=== PATIENT | male | born 1955 | race Caucasian/White ===

== ENCOUNTER 2024-07-03 15:24 | Emergency (ER) | payer MEDICARE, MEDICAID, SELFPAY ==
--- NOTE | 2024-07-03 | ECG_ITS ---
Test Reason : SOB Blood Pressure : */* mmHG Vent. Rate : 82 BPM Atrial Rate : 82 BPM P-R Int : 154 ms QRS Dur : 124 ms QT Int : 392 ms P-R-T Axes : 42 55 39 degrees QTcB Int : 457 ms Poor data quality Normal sinus rhythm Right bundle branch block Abnormal ECG No previous ECGs available Referred By: Generic ED Physician Electronically Signed By: MIRANDA ADKINS MD
--- NOTE | ~2024-07-03 | XR_ITS ---
CLINICAL HISTORY: great toe wound, erythema 3 view right 1st toe Comparison: None Findings: No acute fracture. No bony destruction or periostitis. Osteopenia is present. No significant loss of joint space or osteophytes. No erosions. No radiopaque foreign body. Severe edema of the soft tissues. No soft tissue gas collection. IMPRESSION: No evidence of osteomyelitis. This document has been electronically signed by: Padmini Davison MD on 07/03/2024 18:01:05
--- NOTE | ~2024-07-03 | XR_ITS ---
CLINICAL HISTORY: SOB 2 view chest x-ray Comparison: None Findings: Pulmonary hypoinflation. Mild airspace opacity within the left lower lung. No pleural effusion. Normal size heart. No acute fracture. IMPRESSION: Pulmonary hypoinflation with mild left basilar atelectasis or infiltrate. This document has been electronically signed by: Padmini Davison MD on 07/03/2024 17:59:18
--- NOTE | ~2024-07-03 | CT_ITS ---
CLINICAL HISTORY: SOB, hypoxemia CT chest without contrast Comparison: None Findings: The heart is normal size. The visualized thyroid and mediastinum are unremarkable. There is complete consolidation of the right middle and lower lobes with significant associated volume loss. Trace left pleural effusion. Moderate pulmonary emphysema, predominantly paraseptal. Multiple small gallstones within the gallbladder. The bones are intact. IMPRESSION: 1. Extensive atelectasis and/or infiltrates within the right middle and right lower lobes. 2. Trace left pleural effusion. 3. Cholelithiasis. This document has been electronically signed by: Padmini Davison MD on 07/03/2024 20:15:11
[2024-07-03 15:36] VITALS: BP 117/80; BP 119/53; PULSE 81; PULSE 83; RESP 14; O2SAT 92; O2SAT 93; BMI 30.8
--- NOTE | 2024-07-03 15:40 | PC.NURSE ---
pt biba from [facility] d/t increased sob x this morning. hx CHF/COPD. pt found to be at 83% on 3L via NC (baseline). pt received breathing tx x 2, 125mg of solumedrol w/ good effect. denies chest pain/fever/chills. upon ED arrival - a&ox4. vss and up to date. nsr on the conveyor monitor. pt reports sx improved s/p interventions provided by EMS. 20gIV in the left AC via EMS. labs obtained/sent to lab. ekg performed. pt currently displays in no respiratory distress. on 3L via NC w/o difficulty. no sob/wob noted. respirations even/unlabored. plan of care ongoing. call cortez placed within reach.
[2024-07-03 15:57] LABS: MANUAL DIFF FLAG NO
[2024-07-03 15:58] LABS: Basophils Percent Auto 0.3 % (0-2); Eosinophils Absolute Auto 0.1 X10*3/uL (0.0-0.4); Eosinophils Percent Auto 0.6 % (0-4); Hematocrit 34.4 % (42.0-52.0); Hemoglobin 10.4 g/dl (14.0-18.0); Imm Gran Abs Auto 0.07 X10*3/uL (0.00-0.03); Imm Gran Pct Auto 0.6 % (0.0-0.4); Lymphocytes Absolute Auto 2.1 X10*3/uL (1.2-4.9); Lymphocytes Percent Auto 19.5 % (20-40); Mean Corpuscular HGB Conc 30.2 g/dl (31.0-36.0); Mean Corpuscular Volume 99.1 fL (80.0-98.0); Mean Platelet Volume 9.9 fL (9.4-12.4); Monocytes Absolute Auto 1.3 X10*3/uL (0.1-1.2); Monocytes Percent Auto 12.3 % (2-11); Neutrophils Absolute Auto 7.2 x10*3/uL (2.0-8.3); Neutrophils Percent Auto 66.7 % (45-73); Platelet Count 236 X10*3/uL (160-400); Red Blood Count 3.47 X10*6/uL (4.60-5.80); Red Cell Distribution Width 15.1 % (11.0-16.0); White Blood Count 10.8 X10*3/uL (4.8-10.8)
[2024-07-03 16:00] VITALS: BP 116/62; PULSE 85; RESP 18; TEMP 36.9; O2SAT 93
--- NOTE | 2024-07-03 16:02 | ED.SOB ---
HPI - SOB/Dyspnea General Chief Complaint: Dyspnea Stated Complaint: SOB FROM SNF Time Seen by Provider: 07/03/24 15:56 Related Data Allergies Allergy/AdvReac Type Severity Reaction Status Date / Time cephalexin [From Keflex] Allergy Unknown Verified 07/03/24 15:43 [facility] Social History Social History Do you have a plan to hurt others: No Plan Physical Exam Vital Signs: Vital Signs: Last Vital Signs Temp 98.5 F 07/03/24 16:00 Pulse 85 07/03/24 16:00 Resp 18 07/03/24 16:00 BP 116/62 07/03/24 16:00 Pulse Ox 93 07/03/24 16:00 O2 Del Method Nasal Cannula 07/03/24 16:00 Oxygen Flow Rate 2 07/03/24 15:36 BMI result Body Mass Index 30.8 Medical Decision Making Medical Decision Making [facility] Narrative: CKD, diabetes mellitus, COPD, chronic hypoxic respiratory failure on supplemental O2 at baseline, PVD s/p left foot 2nd toe amputation, CHF, paroxysmal atrial fibrillation, history of pulmonary embolism anticoagulated on apixaban, hypertension, hyperlipidemia, depression, anxiety, dementia Lab Data 07/03/24 15:52 07/03/24 15:52 Labs: Lab Results 07/03/24 Range/Units 15:52 WBC 10.8 (4.8-10.8) X10*3/uL RBC 3.47 L (4.60-5.80) X10*6/uL Hgb 10.4 L (14.0-18.0) g/dl Hct 34.4 L (42.0-52.0) % MCV 99.1 H (80.0-98.0) fL MCH 30.0 (27.0-33.0) pg MCHC 30.2 L (31.0-36.0) g/dl RDW 15.1 (11.0-16.0) % Plt Count 236 (160-400) X10*3/uL MPV 9.9 (9.4-12.4) fL Immature Gran % (Auto) 0.6 H (0.0-0.4) % Neut % (Auto) 66.7 (45-73) % Lymph % (Auto) 19.5 L (20-40) % [place] % (Auto) 12.3 H (2-11) % Eos % (Auto) 0.6 (0-4) % Baso % (Auto) 0.3 (0-2) % Lymph # (Auto) 2.1 (1.2-4.9) X10*3/uL [place] # (Auto) 1.3 H (0.1-1.2) X10*3/uL Eos # (Auto) 0.1 (0.0-0.4) X10*3/uL Baso # (Auto) 0.0 (0.0-0.2) X10*3/uL Abs Immat Gran (auto) 0.07 H (0.00-0.03) X10*3/uL Absolute Neuts (auto) 7.2 (2.0-8.3) x10*3/uL Absolute Nucleated RBC 0.000 (0.0-0.012) X10*3/uL Nucleated RBC % (auto) 0.0 (0.0-0.2) /100WBC External Record Review External record reviewed: Inpatient record and Outpatient record Recent admission to [facility] 06/17/2024-06/20/2024 for acute on chronic hypoxic respiratory failure, COVID-19, COPD exacerbation given 10 day course of dexamethasone, possible superimposed pneumonia work ruled out with negative procalcitonin, mild JESSIKA on CKD (baseline creatinine 1.2-1.7). I do not see record of documented tension pneumothorax from [facility] medical record [facility] at least in the past few months Discharge Plan Discharge Print Language: Khmer
[2024-07-03 16:10] LABS: INTERNATIONAL NORM RATIO 1.6 (0.9-1.1); Prothrombin Time 18.3 SEC (10.9-12.4)
[2024-07-03 16:13] LABS: Partial Thromboplastin Time 28.4 SEC (26.0-36.8)
[2024-07-03 16:20] LABS: B Type Natriuretic Peptide 22 pg/mL (<100)
[2024-07-03 16:23] LABS: Troponin-I High Sensitivity 11.2 ng/L (<3.5-35.0)
[2024-07-03 16:27] VITALS: O2SAT 94
--- NOTE | 2024-07-03 16:28 | ED.GENADULT ---
HPI - General Adult General Chief complaint: Dyspnea Stated complaint: SOB FROM SNF Time Seen by Provider: 07/03/24 15:56 Source: patient and EMS Mode of arrival: EMS Limitations: no limitations History of Present Illness ED Provider: wisam jones NP HPI narrative: Patient is a 69-year-old male who presents emergency department via EMS coming from [facility]. Reports that he was recently discharged from [facility] couple of weeks ago, states he has been feeling not quite at baseline but better than when he presented to the hospital. However, he states today he was feeling worse with increased shortness of breath and work of breathing. He reports at baseline he wears 3 L via nasal cannula of supplemental oxygen. He denies any known fevers. Denies any known illnesses passing through the detention facility. No associated fall. He denies cough, sore throat, neck pain, chest pain, palpitations, nausea, vomiting, abdominal pain, numbness or tingling of the extremities, recent lower extremity pain or swelling. He does admit to having an ongoing wound to the right great toe states it has been there for about 1 month. He has bilateral lower extremity edema which she has feels is at baseline for him may be slightly worse Related Data Previous Rx's ?Medication ?Instructions ?Recorded amoxicillin 875 mg-potassium 1 tab PO BID 7 days #14 tabs 07/03/24 clavulanate 125 mg tablet doxycycline hyclate 100 mg capsule 100 mg PO BID 5 days #10 caps 07/03/24 Allergies Allergy/AdvReac Type Severity Reaction Status Date / Time cephalexin [From Keflex] Allergy Unknown Verified 07/03/24 15:43 Review of Systems Review of Systems: Yes all other systems are reviewed and are negative [facility] Past Medical History Attestation statement: The following information was validated with the patient. Source: old records reviewed Social History Social History Smoked in Last 30 Days: No Use of substances other than those prescribed or required for medical reasons: No Advance Directives: No Advance Directives Information Provided: No Do you have a plan to hurt others: No Plan Physical Exam ED Vital Signs: Vital Signs - 24 hr 07/03/24 15:36 07/03/24 16:00 07/03/24 16:27 Temperature 98.5 F Pulse Rate 83 85 Respiratory Rate 14 18 Blood Pressure 119/53 L 116/62 Pulse Oximetry 93 93 94 Oxygen Delivery Method Nasal Cannula Nasal Cannula Nasal Cannula Oxygen Flow Rate 2 3 07/03/24 18:04 07/03/24 18:07 07/03/24 18:42 Temperature 98.1 F Pulse Rate 83 85 84 Respiratory Rate Blood Pressure 113/65 123/68 Pulse Oximetry 93 90 L Oxygen Delivery Method Nasal Cannula Nasal Cannula Oxygen Flow Rate 3 3.5 BMI result Body Mass Index 30.8 Appearance: Alert.?Oriented to person, place and time. No acute distress.?Normal affect. Eyes: Pupils equal, round and reactive to light.? ENT: Pharynx normal.?? Neck: Normal inspection.? Neck supple.?? CVS: Heart sounds normal. Normal heart rate and rhythm.? Pulses normal.?? Respiratory: No respiratory distress.? Lung sounds with rales to the right lower lobe Abdomen: Soft and non-tender. Normoactive bowel sounds. Skin: Skin warm and dry.? Normal skin color.? Extremities: 3+ pitting bilateral lower extremity edema. Right great toe erythematous with a wound to the plantar distal aspect of the toe, wound bed pink with granulation tissue. The entirety of the great toe is erythematous and warmth with mild erythema and warmth over the dorsum of the foot.? No calf ttp? Neuro: Moves all extremities spontaneously. Sensation intact bilaterally. No focal neuro deficits. Medications Administered Discontinued Medications Generic Name Dose Route Start Last Admin Trade Name Freq PRN Reason Stop Dose Admin Albuterol Sulfate 2.5 mg/ 0 mg 07/03/24 18:40 07/03/24 18:42 Albuterol/Ipratropium 3 ml INHALE 07/03/24 18:41 1 dose ONCE ONE Administration Medical Decision Making Medical Decision Making [facility] Narrative: Patient is a 69-year-old male with past medical history of type 2 diabetes, hypertension, hyperlipidemia, CKD stage 3, paroxysmal atrial fibrillation history of pulmonary embolism anticoagulated on apixaban, COPD with chronic hypoxic respiratory failure 3-4 L at baseline, PVD s/p left foot 2nd toe amputation, depression, anxiety, mild dementia who presents emergency department for evaluation of shortness of breath as per HPI. He has bilateral lower extremity pitting edema which may perhaps be increased from baseline as well as rales in the right lower lobe obtaining chest x-ray to evaluate for consolidation or infiltrate versus pulmonary congestion. He has a right great toe wound with erythema and warmth to the toe, obtaining XR to evaluate osseous abnormality. Recent hospitalization for COVID-19 infection with COPD exacerbation and acute on chronic hypoxic respiratory failure. He denies associated chest pain, lower extremity pain, he is anticoagulated on Eliquis. Denies any trauma or injury, no tracheal deviation, lower suspicion for pneumothorax. Initial nursing triage endorses a history of pneumothorax, he has not previously been seen at this hospital, I do not any recent pneumothorax through [facility] medical records within the past 3 months. Will obtain CBC to evaluate for leukocytosis/ anemia, CMP and lipase to evaluate for abnormal electrolytes /abnormal renal function/ abnormal hepatic/biliary function, EKG and troponin to evaluate for ischemia/ACS, viral serologies and urinalysis Differential Diagnosis Differential Diagnoses: The differential diagnosis associated with the presentation includes (See narrative above) Admission/Observation Consideration of admission/observation: Escalation of care including admission/observation considered (See narrative above and course narrative for further detail) Lab Data MDM Lab Attestation statement: I reviewed the patient's lab results. CBC is without leukocytosis, has a chronic stable anemia does not meet transfusion criteria, no thrombocytopenia. No electrolyte derangement. No JESSIKA. No lactic acidosis. High sensitive troponin within normal range. BNP not elevated. COVID-19 positive (although I have mentioned he was positive on 06/17/2024) 07/03/24 15:52 07/03/24 15:52 Labs: Lab Results 07/03/24 07/03/24 Range/Units 15:52 16:42 WBC 10.8 (4.8-10.8) X10*3/uL RBC 3.47 L (4.60-5.80) X10*6/uL Hgb 10.4 L (14.0-18.0) g/dl Hct 34.4 L (42.0-52.0) % MCV 99.1 H (80.0-98.0) fL MCH 30.0 (27.0-33.0) pg MCHC 30.2 L (31.0-36.0) g/dl RDW 15.1 (11.0-16.0) % Plt Count 236 (160-400) X10*3/uL MPV 9.9 (9.4-12.4) fL Immature Gran % (Auto) 0.6 H (0.0-0.4) % Neut % (Auto) 66.7 (45-73) % Lymph % (Auto) 19.5 L (20-40) % [place] % (Auto) 12.3 H (2-11) % Eos % (Auto) 0.6 (0-4) % Baso % (Auto) 0.3 (0-2) % Lymph # (Auto) 2.1 (1.2-4.9) X10*3/uL [place] # (Auto) 1.3 H (0.1-1.2) X10*3/uL Eos # (Auto) 0.1 (0.0-0.4) X10*3/uL Baso # (Auto) 0.0 (0.0-0.2) X10*3/uL Abs Immat Gran (auto) 0.07 H (0.00-0.03) X10*3/uL Absolute Neuts (auto) 7.2 (2.0-8.3) x10*3/uL Absolute Nucleated RBC 0.000 (0.0-0.012) X10*3/uL Nucleated RBC % (auto) 0.0 (0.0-0.2) /100WBC PT 18.3 H (10.9-12.4) SEC INR 1.6 H (0.9-1.1) APTT 28.4 (26.0-36.8) SEC Sodium 143 (135-145) mmol/L Potassium 4.7 D (3.3-5.1) mmol/L Chloride 105 (96-108) mmol/L Carbon Dioxide 30 H (22-29) mmol/L Anion Gap 13 (12-20) BUN 13 (9-16) mg/dL Creatinine 1.44 H (0.5-1.4) mg/dL Estim Creat Clear Calc 55.9 Estimated GFR 48 Random Glucose 137 H (60-115) mg/dL Lactic Acid 1.4 (0.5-2.0) mmol/L Calcium 8.7 D (8.4-10.2) mg/dL Magnesium 2.0 (1.6-2.6) mg/dL Total Bilirubin 0.4 (0.0-1.0) mg/dL Direct Bilirubin 0.2 (0.0-0.5) mg/dL AST 18 (5-37) U/L ALT 14 (0-40) U/L Alkaline Phosphatase 91 (39-117) U/L Troponin I High Sens 11.2 (<3.5-35.0) ng/L C-Reactive Protein 4.80 H (< or = 0.50) mg/dL B-Natriuretic Peptide 22 (<100) pg/mL Total Protein 6.1 L (6.5-8.0) g/dL Albumin 3.1 L (3.5-5.0) g/dL Influenza Type A (PCR) NEGATIVE (Negative) Influenza Type B (PCR) NEGATIVE (Negative) RSV RNA Qual (PCR) NEGATIVE (Negative) SARS-CoV-2 RNA (RT-PCR) POSITIVE A (Negative) Independent Interpretation I performed an independent interpretation of an: EKG and Plain X-Ray (Left lower lobe infiltrate) Interpretation: EKG reveals a normal sinus rhythm with right bundle-branch block, ventricular rate of 82, QTC 457, no ST elevation. Right bundle-branch block seen on prior EKG through [facility] on 06/20/2024 Radiology Impression Discussion of test interpretation with radiology: I have reviewed the radiologist's reading. Radiologist Impression: Findings: xr right foot No acute fracture. No bony destruction or periostitis. Osteopenia is present. No significant loss of joint space or osteophytes. No erosions. No radiopaque foreign body. Severe edema of the soft tissues. No soft tissue gas collection. IMPRESSION: No evidence of osteomyelitis. Findings: xr chest 2-view Pulmonary hypoinflation. Mild airspace opacity within the left lower lung. No pleural effusion. Normal size heart. No acute fracture. IMPRESSION: Pulmonary hypoinflation with mild left basilar atelectasis or infiltrate. CT chest without contrast Comparison: None Findings: The heart is normal size. The visualized thyroid and mediastinum are unremarkable. There is complete consolidation of the right middle and lower lobes with significant associated volume loss. Trace left pleural effusion. Moderate pulmonary emphysema, predominantly paraseptal. Multiple small gallstones within the gallbladder. The bones are intact. IMPRESSION: 1. Extensive atelectasis and/or infiltrates within the right middle and right lower lobes. 2. Trace left pleural effusion. 3. Cholelithiasis. Independent Historian Clinical information obtained from an independent historian. History obtained from or confirmed by: EMS External Record Review External record reviewed: Inpatient record and Outpatient record Patient was admitted to [facility] 06/17/2024-06/20/2024 with acute on chronic hypoxic respiratory failure, COVID-19, COPD exacerbation treated with 10 day course of dexamethasone, possible superimposed bacterial pneumonia ruled out with negative procalcitonin, mild JESSIKA and CKD (baseline creatinine 1.2-1.7) Chronic Conditions Patient?s care impacted by: Other (See narrative above) Discharge Plan Discharge Clinical Impression: Pneumonia Patient Disposition: Xfer SNF Transfer Details: [facility] Instructions: Pneumonia (ED) Additional Instructions: His COVID test today remains positive. Imaging shows concern for pneumonia in the right lung for which to antibiotics have been prescribed. O2 saturation remains 91-94% on 4 L. Prescriptions: New amoxicillin-pot clavulanate 875-125 mg tablet 1 tab PO BID 7 Days Qty: 14 0RF doxycycline hyclate 100 mg capsule 100 mg PO BID 5 Days Qty: 10 0RF Print Language: Indian
[2024-07-03 16:35] LABS: Influenza A PCR NEGATIVE (Negative); Influenza B PCR NEGATIVE (Negative); Resp Syncy Virus RNA Qual PCR NEGATIVE (Negative); SARS COV2 PCR INHOUSE POSITIVE (Negative)
[2024-07-03 16:43] LABS: Alanine Aminotransferase 14 U/L (0-40); Albumin Level 3.1 g/dL (3.5-5.0); Anion Gap 13 (12-20); Aspartate Amino Transferase 18 U/L (5-37); Bilirubin Direct 0.2 mg/dL (0.0-0.5); Bilirubin Total 0.4 mg/dL (0.0-1.0); Blood Urea Nitrogen 13 mg/dL (9-16); Calcium 8.7 mg/dL (8.4-10.2); Carbon Dioxide 30 mmol/L (22-29); Chloride 105 mmol/L (96-108); Creatinine Clr Calc Pharmacy 55.9; Estimated Glomerular Filt Rate 48; Glucose Random 137 mg/dL (60-115); Potassium 4.7 mmol/L (3.3-5.1); Sodium 143 mmol/L (135-145); Total Protein 6.1 g/dL (6.5-8.0)
[2024-07-03 17:02] LABS: Lactic Acid 1.4 mmol/L (0.5-2.0)
[2024-07-03 17:21] LABS: Alkaline Phosphatase 91 U/L (39-117)
[2024-07-03 18:04] VITALS: BP 113/65; PULSE 83; RESP 18; TEMP 36.7; O2SAT 93
[2024-07-03 18:07] VITALS: BP 123/68; PULSE 85; RESP 20; O2SAT 90
--- NOTE | 2024-07-03 18:35 | PC.NURSE ---
pt noted to be covid +. precautions placed on door.
--- NOTE | 2024-07-03 18:40 | PC.NURSE ---
pt receiving breathing tx via RT at this time.
[2024-07-03 18:42] VITALS: PULSE 84; RESP 18; O2SAT 89
[2024-07-03] MEDS: Albuterol Sulfate 2.5 MG, Albuterol/Iprat 2.5/0.5MG 3 ML 3 ML INHALE (18:42)
== END 2024-07-03 20:33 | disposition skilled nursing facility (03) ==
PROVIDERS: Nurse Practitioner Family; Emergency Provider Emergency Medicine Emergency Medical Services; PCP Student in an Organized Health Care Education/Training Program
DX: J18.9 Pneumonia, unspecified organism (principal); U07.1 COVID-19; R06.02 Shortness of breath; R09.02 Hypoxemia; L53.9 Erythematous condition, unspecified
CPT/HCPCS: 0241U; 36415; 71046; 71250; 73660; 80053; 82248; 83605; 83735; 83880; 84484; 85025; 85610; 85730; 86140; 87040; 93005; 94640; 99285

== ENCOUNTER → 2024-07-03 16:09 | Outpatient (BNV) | payer MEDICARE, MEDICAID, SELFPAY | PROVIDERS: Emergency Provider Emergency Medicine Emergency Medical Services; PCP Student in an Organized Health Care Education/Training Program; Visit Provider Internal Medicine Cardiovascular Disease | DX: R06.02 Shortness of breath (principal); I45.10 Unspecified right bundle-branch block; R94.31 Abnormal electrocardiogram [ECG] [EKG] | CPT/HCPCS: 93010 ==

== ENCOUNTER → 2024-07-03 17:10 | Outpatient (BNV) | payer MEDICARE, MEDICAID, SELFPAY | PROVIDERS: Emergency Provider Emergency Medicine Emergency Medical Services; PCP Student in an Organized Health Care Education/Training Program; Visit Provider Radiology Diagnostic Radiology | DX: J98.11 Atelectasis (principal); S91.101A Unspecified open wound of right great toe without damage to nail, initial encounter; R06.02 Shortness of breath | CPT/HCPCS: 71046; 71250; 73660 ==

== ENCOUNTER 2024-07-06 03:37 | Inpatient (IN) | payer MEDICARE, MEDICAID, SELFPAY ==
[2024-07-06] VITALS (24 sets, daily range): BP systolic 80–133; BP diastolic 36–78; PULSE 73–113; RESP 13–26; TEMP 36–36.8; O2SAT 78–98; BMI 36.3
--- NOTE | 2024-07-06 | ECG_ITS ---
Test Reason : DYSPNEA Blood Pressure : */* mmHG Vent. Rate : 72 BPM Atrial Rate : * BPM P-R Int : * ms QRS Dur : 132 ms QT Int : 410 ms P-R-T Axes : * 31 21 degrees QTcB Int : 448 ms Poor data quality Normal sinus rhythm Right bundle branch block Abnormal ECG When compared with ECG of 03-Jul-2024 16:09, No significant changes seen Referred By: Generic ED Physician Electronically Signed By: MIRANDA ADKINS MD
--- NOTE | ~2024-07-06 | CT_ITS ---
CLINICAL HISTORY: Dyspnea and hypoxia CT angiography chest with contrast. 3D Postprocessing. Comparison: CR/SR - XR CHEST 1V - 07/07/24 10:37 EST CR - XR CHEST 1V - 07/06/24 04:[address]/SR - CT CHEST WO IV CON - 07/03/24 19:27 EST Findings: Dense consolidation of the right lower and middle lobes, progressive from prior, with extensive bronchial opacification suggesting aspiration or mucous plugging. Endobronchial neoplasm not excluded. Bronchoscopy suggested for follow-up. Much smaller region of consolidation in the medial left lower lobe and perihilar lung may reflect atelectasis or or pneumonia without obvious bronchial opacification. Respiratory motion limits detail. Paraseptal greater than centrilobular emphysema. No pleural effusion. No acute pulmonary embolism. Pulmonary trunk mildly prominent at 3 cm, nonspecific. Normal caliber thoracic aorta. No dissection. Minimal plaque. No stenosis. No stenosis or dissection of the supra-aortic vessels. Thoracic inlet intact. No thyroid nodules. No enlarged mediastinal or hilar lymph nodes. Mild cardiomegaly. No pericardial effusion. Nonspecific increased right ventricle ratio. No reflux of contrast into the IVC or hepatic veins to suggest increased right ventricle pressure. Mild coronary artery calcification. Esophagus within normal limits. No hiatal hernia. Cholelithiasis without additional features of acute cholecystitis. Several small calcifications in the pancreas suggesting sequela of chronic calcific pancreatitis. Similar thoracic spondylosis. No acute or aggressive appearing bone lesion. Impression: No acute pulmonary embolism or aortic dissection. Progressive complete consolidation of the right middle lobe and lower lobe with extensive endobronchial filling suggesting aspiration or extensive mucous plugging. Endobronchial neoplasm not completely excluded. Bronchoscopy suggested for follow-up. Similar left perihilar and medial lower lung consolidation suggesting atelectasis or pneumonia and less typical for postobstructive change. Remainder of the CT appears similar to prior. This document has been electronically signed by: Lamin Godoy MD on 07/08/2024 12:33:30
--- NOTE | ~2024-07-06 | XR_ITS ---
EXAMINATION: XR CHEST CLINICAL INFORMATION: Hypoxia / pneumonia COMPARISON: 07/06/2024. 07/03/2024. TECHNIQUE: AP portable view of the chest was obtained. FINDINGS: There is rightward patient rotation. Underlying COPD. Worsening right middle lobe and lower lobe parenchymal consolidations with increasing, now moderate sized effusion. Complete obscuration of the right heart border and right hemidiaphragm. Minimal left basilar medial atelectasis. Left lung otherwise remains clear. No pneumothorax. No soft tissue or focal osseous abnormality. XR/XR chest 1V IMPRESSION: 1. Worsening right middle lobe and right lower lobe consolidation with increasing right effusion. 2. Subsegmental opacity in the medial left lower lobe, likely persistent atelectasis. 3. COPD. Electronically signed by: Derrick Aj MD 07/07/2024 10:51 AM [facility]
--- NOTE | ~2024-07-06 | CT_ITS ---
EXAMINATION: CT HEAD WITHOUT CONTRAST CLINICAL INFORMATION: Encephalopathy, ?Intracranial Process COMPARISON: None available. TECHNIQUE: Contiguous axial imaging was performed from the skull base to vertex without intravenous administration of contrast. This CT examination was performed using dose optimization techniques as appropriate, variously including the following: *Automated exposure control *Adjustment of mA and/or kV according to patient size (this includes techniques or standardized protocols for targeted exams where dose is matched to indication/reason for exam; i.e. extremities or head) *Use of iterative reconstruction technique DLP: 818 mGy-cm FINDINGS: No acute intracranial hemorrhage, mass effect, midline shift, hydrocephalus or herniation. Chaney-white matter differentiation is normal. Prominence of the extra-axial CSF spaces cerebral sulci and ventricles likely central volume loss. Posterior cranial fossa contents demonstrated no acute intracranial hemorrhage or mass effect. Calcified plaques in the cavernous segments both ICAs and the V4 segments. Probable old tiny old lacunar infarcts in the basal ganglia and extracapsular. The bony calvarium is intact. The skull base is intact. There is volume loss of the left maxillary sinus with slightly increased density mucosal thickening and secretions occupy in the entirety and extending into the left ostiomeatal unit. CT/CT head/brain wo IV con IMPRESSION: No acute intracranial hemorrhage. Small vessel occlusive disease. Global cerebral atrophy. Acute on chronic left maxillary sinus disease. Recommend direct inspection since underlying fungal infection versus malignancy cannot be excluded Electronically signed by: Kehinde Graf MD 07/11/2024 01:19 PM [facility]
--- NOTE | ~2024-07-06 | XR_ITS ---
CLINICAL HISTORY: dyspnea 1 view chest x-ray Comparison: CR - XR CHEST 2V - 07/03/24 17:14 EST Findings: Mild bibasilar subsegmental atelectasis or infiltrate and small layering right-sided effusion. Normal size heart. No acute fracture. IMPRESSION: Mild bibasilar subsegmental atelectasis or infiltrate and small layering right-sided effusion. This document has been electronically signed by: Rohith Richardson MD, PHD on 07/06/2024 04:58:48
[2024-07-06 04:23] LABS: MANUAL DIFF FLAG NO
[2024-07-06 04:24] LABS: Basophils Percent Auto 0.2 % (0-2); Eosinophils Percent Auto 0.3 % (0-4); Hematocrit 33.6 % (42.0-52.0); Imm Gran Abs Auto 0.06 X10*3/uL (0.00-0.03); Imm Gran Pct Auto 0.7 % (0.0-0.4); Lymphocytes Absolute Auto 1.7 X10*3/uL (1.2-4.9); Lymphocytes Percent Auto 19.1 % (20-40); Mean Corpuscular HGB Conc 29.8 g/dl (31.0-36.0); Mean Corpuscular Hemoglobin 29.4 pg (27.0-33.0); Mean Corpuscular Volume 98.8 fL (80.0-98.0); Mean Platelet Volume 9.7 fL (9.4-12.4); Monocytes Absolute Auto 0.9 X10*3/uL (0.1-1.2); Monocytes Percent Auto 10.3 % (2-11); Neutrophils Absolute Auto 6.3 x10*3/uL (2.0-8.3); Neutrophils Percent Auto 69.4 % (45-73); Platelet Count 226 X10*3/uL (160-400); Red Cell Distribution Width 15.6 % (11.0-16.0); Venous Blood Gas Refer to POC result; White Blood Count 9.1 X10*3/uL (4.8-10.8)
[2024-07-06 04:28] LABS: VBG Base Excess 12.2 mmol/L; VBG HCO3 40 mmol/L (22-26); VBG pCO2 69 mmHg; VBG pH 7.36 (7.32-7.43); VBG pO2 25 mmHg
[2024-07-06 04:43] LABS: Alanine Aminotransferase 10 U/L (0-40); Albumin Level 3.1 g/dL (3.5-5.0); Alkaline Phosphatase 86 U/L (39-117); Anion Gap 15 (12-20); Aspartate Amino Transferase 24 U/L (5-37); B Type Natriuretic Peptide 20 pg/mL (<100); Bilirubin Total 0.3 mg/dL (0.0-1.0); Blood Urea Nitrogen 18 mg/dL (9-16); Calcium 8.6 mg/dL (8.4-10.2); Carbon Dioxide 30 mmol/L (22-29); Chloride 103 mmol/L (96-108); Creatinine Clr Calc Pharmacy 59.3; Estimated Glomerular Filt Rate 47; Glucose Random 120 mg/dL (60-115); Potassium 4.3 mmol/L (3.3-5.1); Sodium 144 mmol/L (135-145); Total Protein 6.3 g/dL (6.5-8.0)
--- NOTE | 2024-07-06 06:38 | ED_ITS ---
HPI - General Adult General Chief complaint: Dyspnea Stated complaint: SOB 4L nasal baseline Time Seen by Provider: 07/06/24 06:34 Source: patient and EMS Mode of arrival: EMS Limitations: no limitations History of Present Illness ED Provider: Ritika Riley PA-C HPI narrative: Patient is a 69 year old assigned male at with a history of chronic respiratory failure on 3-4 liters of oxygen via nasal cannula, alcohol dependance, CKD stage 3, CHF, paroxsysmal atrial fib on eliquis, dementia, COVID-19 infection as of 06/17/2024, recent pneumonia diagnosis on azithromycin + doxycycline as of 07/04/2024 presenting to the emergency department today with increased shortness of breath. Patient states that he has had significantly worse shortness of breath over the last few hours. [facility] staff state that the patient was as low as 81% on RA without his nasal cannula and when the nasal cannula was replaced he got as high as 91%. Patient denies any dizziness, lightheadedness, abdominal pain, nausea, vomiting, fever, chills, blurry vision, double vision, loss of vision, chest pain, back pain, night sweats, pain with urination, increased urinary frequency, increased urinary urgency, blood in his urine or stool, syncope or a near syncopal episode, recent trauma or falls, bowel incontinence, bladder incontinence, or any other complaints at this time. Onset (ago): hour(s) Relieving factors: none Exacerbating factors: none Associated symptoms: shortness of breath Related Data Home Medications ?Medication ?Instructions ?Recorded ?Confirmed acetaminophen 325 mg tablet 650 mg PO Q6H PRN Pain 07/06/24 07/06/24 albuterol sulfate 90 mcg/actuation 2 puff inhalation Q6H 07/06/24 07/06/24 aerosol inhaler amlodipine 5 mg tablet 5 mg PO DAILY 07/06/24 07/06/24 amoxicillin 875 mg-potassium 1 tab PO BID 07/06/24 07/06/24 clavulanate 125 mg tablet apixaban 5 mg tablet 5 mg PO BID 07/06/24 07/06/24 aspirin 81 mg tablet,delayed 81 mg PO DAILY 07/06/24 07/06/24 release atorvastatin 40 mg tablet 40 mg PO BEDTIME 07/06/24 07/06/24 bisacodyl 10 mg rectal suppository 10 mg MI DAILY PRN if no BM and 07/06/24 07/06/24 (Dulcolax (bisacodyl)) MOM not effective clonazepam 0.5 mg tablet 0.5 mg PO BID 07/06/24 07/06/24 dextrose 40 % oral gel (Glucose 15 g PO Q15M PRN BS less than 60 07/06/24 07/06/24 Gel) doxycycline hyclate 100 mg capsule 100 mg PO BID 07/06/24 07/06/24 duloxetine 40 mg capsule,delayed 40 mg PO BID 07/06/24 07/06/24 release sprinkle empagliflozin 10 mg tablet 10 mg PO DAILY 07/06/24 07/06/24 fluticasone furoate 100 1 inh inhalation DAILY 07/06/24 07/06/24 mcg-vilanterol 25 mcg/dose inhalation powder (Breo Ellipta) furosemide 40 mg tablet 40 mg PO DAILY 07/06/24 07/06/24 gabapentin 100 mg capsule 200 mg PO TID 07/06/24 07/06/24 glucagon HCl 1 mg/mL solution for 1 mg subcut Q20M PRN BS less than 07/06/24 07/06/24 injection 60 or unresponsive insulin lispro 100 unit/mL 1 sliding scale dose subcut 07/06/24 07/06/24 subcutaneous solution USEASDIRECTD PRN high blood sugar ipratropium 0.5 mg-albuterol 3 mg 3 ml inhalation BID 07/06/24 07/06/24 (2.5 mg base)/3 mL nebulization soln magnesium hydroxide 400 mg/5 mL 30 ml PO DAILY PRN if no BM in 3 07/06/24 07/06/24 oral suspension (Milk of Magnesia) days melatonin 3 mg tablet 3 mg PO DAILY 07/06/24 07/06/24 metoprolol succinate 25 mg 25 mg PO DAILY 07/06/24 07/06/24 tablet,extended release 24 hr olanzapine 10 mg tablet 10 mg PO BEDTIME 07/06/24 07/06/24 sodium phosphates 19 gram-7 118 ml MI DAILY PRN constipation 07/06/24 07/06/24 gram/118 mL enema (Fleet Enema) if no result from laxative supp trazodone 100 mg tablet 100 mg PO DAILY 07/06/24 07/06/24 trazodone 150 mg tablet 150 mg PO BEDTIME 07/06/24 07/06/24 umeclidinium 62.5 mcg/actuation 1 inh inhalation DAILY 07/06/24 07/06/24 blister powder for inhalation (Incruse Ellipta) ziprasidone HCl 80 mg capsule 80 mg PO DAILY 07/06/24 07/06/24 Allergies Allergy/AdvReac Type Severity Reaction Status Date / Time cephalexin [From Keflex] Allergy Unknown Verified 07/06/24 04:05 Review of Systems 2 Review of Systems: Yes Other (patient is demented at baseline) Constitutional: Constitutional: Reports no additional constitutional complaints, Denies chills, Denies fever(s) and Denies night sweats Eyes: Eyes: Reports no additional eye complaints, Denies blurry vision, Denies change in vision, Denies diplopia, Denies eye discharge, Denies loss of vision and Denies eye pain ENT: Denies dizziness Cardiovascular: Cardiovascular: Reports no additional cardiovascular complaints, Denies chest pain, Denies lightheadedness, Denies Loss of Consciousness and Reports dyspnea Respiratory: Respiratory: Reports no additional respiratory complaints and Reports dyspnea Gastrointestinal: Gastrointestinal: Reports no additional gastrointestinal complaints, Denies abdominal pain, Denies melena, Denies hematochezia, Denies change in bowel habits and Denies change in stool character Genitourinary: Genitourinary: Reports no additional male genitourinary complaints, Denies hematuria, Denies oliguria, Denies difficulty urinating, Denies dysuria, Denies urinary frequency, Denies urinary hesitancy, Denies urinary incontinence and Denies urinary urgency Musculoskeletal: Musculoskeletal: Reports no additional musculoskeletal complaints, Denies numbness and Denies tingling Neurologic: Reports confusion (patient has dementia), Denies dizziness, Denies loss of vision, Denies numbness and Denies tingling Psychiatric: Psychiatric: Reports no additional psychiatric complaints and Reports confusion (patient has dementia) Endocrine: Endocrine: Reports no additional endocrine complaints Hematologic/Lymphatic: Hematologic/Lymphatic: Reports no additional hematologic/lymphatic complaints Allergic/Immunologic: Allergic/Immunologic: Reports no additional allergic/immunologic complaints PMFSH Past Medical History Attestation statement: The following information was validated with the patient. Source: old records reviewed and nursing notes reviewed Medical History (Updated 07/06/24 @ 13:12 by MELANIA Ziegler) Unspecified dementia, mild, without behavioral disturbance, psychotic disturbance, mood disturbance, and anxiety Paroxysmal A-fib Heart failure with reduced ejection fraction CKD stage 3 due to type 1 diabetes mellitus COPD (chronic obstructive pulmonary disease) Social History Social History Alcohol intake: former Use of substances other than those prescribed or required for medical reasons: Yes Substance Use Type: Marijuana Substance Use Frequency: Occasionally Advance Directives: No Advance Directives Information Provided: Yes Physical Exam ED Vital Signs: Vital Signs - 24 hr 07/06/24 03:58 07/06/24 06:18 07/06/24 07:18 Temperature 97.7 F 96.8 F Pulse Rate 73 79 81 Respiratory Rate 16 15 26 H Blood Pressure 111/70 111/51 L 109/49 L Pulse Oximetry 97 92 78 L Oxygen Delivery Method Nasal Cannula Nasal Cannula Nasal Cannula Oxygen Flow Rate 4 4 07/06/24 07:19 07/06/24 07:24 07/06/24 07:29 Temperature Pulse Rate 82 Respiratory Rate 22 H Blood Pressure 97/48 L Pulse Oximetry 88 L 94 92 Oxygen Delivery Method Oxymask Oxymask High Flow Nasal Cannula Oxygen Flow Rate 15 15 55 07/06/24 07:31 07/06/24 07:33 07/06/24 07:49 Temperature Pulse Rate 88 79 Respiratory Rate 15 15 22 H Blood Pressure 80/36 L Pulse Oximetry 91 L Oxygen Delivery Method High Flow Nasal Cannula Oxygen Flow Rate 07/06/24 07:58 07/06/24 08:30 07/06/24 09:09 Temperature Pulse Rate 80 82 81 Respiratory Rate 14 20 Blood Pressure 96/43 L 107/38 L 123/61 Pulse Oximetry 98 94 Oxygen Delivery Method High Flow Nasal Cannula High Flow Nasal Cannula Oxygen Flow Rate 50 07/06/24 10:07 07/06/24 11:32 07/06/24 11:52 Temperature 97.6 F Pulse Rate 85 88 Respiratory Rate 20 13 22 H Blood Pressure 118/55 L 100/60 Pulse Oximetry 94 92 Oxygen Delivery Method High Flow Nasal Cannula High Flow Nasal Cannula Oxygen Flow Rate 55 55 BMI result Body Mass Index 36.3 Const General: confusion (patient has dementia) Nutritional Appearance: well nourished Orientation/consciousness: confusion (patient has dementia) Limitations: no limitations HENMS Head: Yes normal to inspection and Yes atraumatic Ears: hearing grossly normal bilaterally and external ears normal General nose exam: Normal external nose present, no nasal discharge noted and no epistaxis Face and sinus: Yes normal facial exam, No abrasion and No laceration Mouth: Normal oral and palatal mucosa present, no drooling and no muffled voice Eyes General: appearance normal, both eyes and all related structures Periorbital: periorbital findings normal Eyelids: Yes eyelids normal Conjunctivae: conjunctivae normal Pupils: Equal, round and reactive pupils present EOM: EOMs intact bilaterally Neck Neck: Yes normal visual inspection, Yes full ROM and Yes no lymphadenopathy Chest Chest palpation & inspection: normal inspection of the chest Resp Effort & Inspection: able to speak in complete sentences and labored Auscultation: rales diffuse and diminished lung sounds on the right in the lower lung alexis GI Inspection: Yes normal to inspection Neuro General: confusion (patient has dementia) Cranial nerves: Yes Equal, round and reactive pupils present Cognition (Neuro): normal cognition Extrem General: Yes normal to inspection, Yes full ROM and Yes capillary refill normal Psych Appearance: grossly normal Mental Status: mental status grossly normal Affect: normal affect Attitude: cooperative Thought process: Normal thought process present Thought content: Normal thought content present Medications Administered Discontinued Medications Generic Name Dose Route Start Last Admin Trade Name Adilson PRN Reason Stop Dose Admin Ceftriaxone Sodium 1 gm 07/06/24 06:54 07/06/24 07:25 Ceftriaxone Sodium 1 Gm Vial IVPUSH 07/06/24 06:55 1 gm ONCE ONE Administration Albuterol Sulfate 2.5 mg/ 0 mg 07/06/24 07:33 07/06/24 07:41 Albuterol/Ipratropium 3 ml INHALE 07/06/24 07:34 5 dose ONCE ONE Administration Magnesium Sulfate/Dextrose 1 gm in 100 mls @ 100 mls/hr 07/06/24 07:25 07/06/24 08:38 Magnesium Sulfate/D5w IV 07/06/24 08:24 Infused ONCE ONE Infusion Doxycycline Hyclate 100 mg/ 250 mls @ 166.67 mls/hr 07/06/24 08:04 07/06/24 10:52 Sodium Chloride IV 07/06/24 09:33 Infused ONCE ONE Infusion Methylprednisolone Sodium Succinate 60 mg 07/06/24 07:25 07/06/24 07:31 Methylprednisolone Sod Succ 125 Mg/2 Ml Vial IVPUSH 07/06/24 07:26 60 mg ONCE ONE Administration Medical Decision Making Medical Decision Making [facility] Narrative: Patient is a 69 year old assigned male at with a history of chronic respiratory failure on 3-4 liters of oxygen via nasal cannula, alcohol dependance, CKD stage 3, CHF, paroxsysmal atrial fib on eliquis, dementia, COVID-19 infection as of 06/17/2024, recent pneumonia diagnosis on azithromycin + doxycycline as of 07/04/2024 presenting to the emergency department today with increased shortness of breath. Patient's blood work was unremarkable. Patient's EKG was unremarkable. Patient's chest x-ray showed mild bibasilar subsegmental atelectasis or infiltrate and small layering right-sided effusion. While in the department, the patient desaturated to below 88%, requiring initially an oxymask and then high flow oxygen via nasal cannula. Patient's oxygen saturation improved. Patient had some pssive hypotension and was given a bolus of 500ml which improved this markedly. Patient was given IV ceftriaxone and doyxycline. Patient's clinical presentation is not consistent with sepsis (@0845). IF I had been concerned of sepsis in this patient - he would NOT have been given the 30ml/kg bolus given his history of CKD + CHF. I spoke to the hospitalist who agreed to admission and requested I consult with the ID team about Remdesivir. I spoke to ID who stated that Remdesivir is not indicated in this patient at this time. I explained my physical exam findings as well as all test results to the patient. I answered all questions asked by the patient. Patient verbalized agreement and understanding with this treatment plan and admission. Differential Diagnosis Differential Diagnoses: The differential diagnosis associated with the presentation includes Hypoxia PNA COVID-19 Admission/Observation Consideration of admission/observation: Escalation of care including admission/observation considered Patient admitted as noted in the MDM Rationale portion of this note. Consult Healthcare Provider Management of the patient was discussed with: Hospitalist (Requested I consult with ID and agreed to admission as noted in the MDM Rationale portion of this note.) and Pneumatic Drum Sander (consulted with the ID team as noted in the MDM Rationale portion of this note.) Lab Data [facility] Lab Attestation statement: I reviewed the patient's lab results. My interpretation of these results are in the MDM Rationale portion of this note. 07/06/24 04:17 07/06/24 04:17 Labs: Lab Results 07/06/24 07/06/24 07/06/24 Range/Units 04:17 04:21 08:54 WBC 9.1 (4.8-10.8) X10*3/uL RBC 3.40 L (4.60-5.80) X10*6/uL Hgb 10.0 L (14.0-18.0) g/dl Hct 33.6 L (42.0-52.0) % MCV 98.8 H (80.0-98.0) fL MCH 29.4 (27.0-33.0) pg MCHC 29.8 L (31.0-36.0) g/dl RDW 15.6 (11.0-16.0) % Plt Count 226 (160-400) X10*3/uL MPV 9.7 (9.4-12.4) fL Immature Gran % (Auto) 0.7 H (0.0-0.4) % Neut % (Auto) 69.4 (45-73) % Lymph % (Auto) 19.1 L (20-40) % Emmet % (Auto) 10.3 (2-11) % Eos % (Auto) 0.3 (0-4) % Baso % (Auto) 0.2 (0-2) % Lymph # (Auto) 1.7 (1.2-4.9) X10*3/uL Emmet # (Auto) 0.9 (0.1-1.2) X10*3/uL Eos # (Auto) 0.0 (0.0-0.4) X10*3/uL Baso # (Auto) 0.0 (0.0-0.2) X10*3/uL Abs Immat Gran (auto) 0.06 H (0.00-0.03) X10*3/uL Absolute Neuts (auto) 6.3 (2.0-8.3) x10*3/uL Absolute Nucleated RBC 0.000 (0.0-0.012) X10*3/uL Nucleated RBC % (auto) 0.0 (0.0-0.2) /100WBC VBG pH 7.36 (7.32-7.43) VBG pCO2 69 mmHg VBG pO2 25 mmHg VBG HCO3 40 H (22-26) mmol/L VBG O2 Saturation 43.0 % VBG Base Excess 12.2 mmol/L Sodium 144 (135-145) mmol/L Potassium 4.3 (3.3-5.1) mmol/L Chloride 103 (96-108) mmol/L Carbon Dioxide 30 H (22-29) mmol/L Anion Gap 15 (12-20) BUN 18 H (9-16) mg/dL Creatinine 1.47 H (0.5-1.4) mg/dL Estim Creat Clear Calc 59.3 Estimated GFR 47 Random Glucose 120 H (60-115) mg/dL Lactic Acid 1.0 (0.5-2.0) mmol/L Calcium 8.6 (8.4-10.2) mg/dL Total Bilirubin 0.3 (0.0-1.0) mg/dL AST 24 (5-37) U/L ALT 10 (0-40) U/L Alkaline Phosphatase 86 (39-117) U/L B-Natriuretic Peptide 20 (<100) pg/mL Total Protein 6.3 L (6.5-8.0) g/dL Albumin 3.1 L (3.5-5.0) g/dL Independent Interpretation I performed an independent interpretation of an: EKG and Plain X-Ray Interpretation: My interpretation is in agreement with the radiologist's impression of this imaging study. L CLINICAL HISTORY: dyspnea 1 view chest x-ray Comparison: CR - XR CHEST 2V - 07/03/24 17:14 EST Findings: Mild bibasilar subsegmental atelectasis or infiltrate and small layering right- sided effusion. Normal size heart. No acute fracture. IMPRESSION: Mild bibasilar subsegmental atelectasis or infiltrate and small layering right- sided effusion. This document has been electronically signed by: Rohith Richardson MD, PHD on 07/06/2024 04:58:48 Dictated By: Rohith Richardson MD Signed By: Electronically signed by Rohith Richardson MD in [place] 07/06/24 0459 Vent. Rate: 72 BPM Atrial Rate: * BPM P-R Int: * ms QRS Dur: 132 ms QT Int: 410 ms P-R-T Axes: * 31 21 degrees QTcB Int: 448 ms Normal sinus rhythm Right bundle branch block When compared with ECG of 03-Jul-2024 16:09, No significant changes seen Electronically Signed By: TEJ ADKINS MD Dictated By: Tej Adkins MD Signed By: Electronically signed by Tej Adkins MD 07/06/24 0594 Radiology Impression Discussion of test interpretation with radiology: I have reviewed the radiologist's reading. Independent Historian Clinical information obtained from an independent historian. History obtained from or confirmed by: EMS (EMS provided additional history and confirmed the history provided by the patient.) Critical Care Time Critical Care Time Critical Care Time: Yes Total Critical Care Time: 44 Attestation: I spent 44 minutes of Critical Care Time with this patient. This does not include time spent on separately reported billable procedures. Discharge Plan Discharge Clinical Impression: Acute on chronic hypoxic respiratory failure, Hypoxia Patient Disposition: Admitted As Inpatient
--- NOTE | 2024-07-06 06:41 | PC.NURSE ---
T/W spoke to Sarah warehouse shipping supervisor at [facility], she reports he is being treated for PNA with doxycycline and Augmentin.
--- NOTE | 2024-07-06 07:19 | PC.NURSE ---
Pt found to be 78% on 4L baseline O2, reporting SOB. Placed on oxymask at 15L and improved to 88%. RT and provider called. RT setting up HFNC at this time
--- NOTE | 2024-07-06 07:20 | PC.NURSE ---
NO BLOOD CULTURES NEEDED PER PROVIDER, VERIFIED X2
[2024-07-06] MEDS: cefTRIAXone sodium 1 GM VIAL IVPUSH (07:25)
--- NOTE | 2024-07-06 07:29 | PC.NURSE ---
HFNC AT 50L, 65%. PT NOTED TO IMPROVED OVERALL
[2024-07-06] MEDS: methylPREDNISolone Sod Succ 125 MG/2 ML VIAL 60 MG IVPUSH ×2 (07:31→23:23)
[2024-07-06] MEDS: Magnesium Sulfate/D5W 1 GM/100 ML PIGGYBACK IV (07:31)
[2024-07-06] MEDS: Albuterol Sulfate 2.5 MG, Albuterol/Iprat 2.5/0.5MG 3 ML 3 ML INHALE (07:41)
--- NOTE | 2024-07-06 08:42 | PC.NURSE ---
Pt did not meet sepsis crisis at time of ABX administration. Provider verified X2. Once pt met criteria orders placed and orders followed
[2024-07-06] MEDS: Doxycycline Hyclate 100 MG in 0.9 % Sodium Chloride 250 ML 166.67 MG IV ×2 (09:09→23:24)
--- NOTE | 2024-07-06 10:00 | PHA.MEDREC ---
Pharmacy Consult ? Medication Reconciliation Pharmacy has completed the medication reconciliation, utilized list from [facility].
--- NOTE | 2024-07-06 10:07 | PC.NURSE ---
[place] cath placed to prevent incontinence
--- NOTE | 2024-07-06 11:17 | PM.IMHP ---
History of Present Illness Date of Service: 07/06/24 Attending physician on admission: Sundar Canales Chief Complaint: SOB Pt is a 69-year-old male with a PMH significant for?paroxysmal AFib on Eliquis, COPD on 4L home O2, HFrEF, CKD stage 3, insulin-dependent type 2 diabetes, alcohol dependence, and dementia who presents to the ED from [facility]?after staff found pt satting at 81% on RA without his nasal cannula on. Pt previously tested positive for COVID at the facility on 06/17/2024, and recently diagnosed with pneumonia and started on azithromycin doxycycline 2 days ago on 07/04/2024. At the facility pt has been experiencing increasing shortness of breath with cough. Pt is alert and oriented to self only and a rather poor historian, but complains only of difficulty breathing, pt denies cough, though as noted to be coughing during interview and exam. In the emergency room pt was noted to be desatting into the 70s and placed on high-flow. In the ED pt was tachypneic up to 26, hypotensive as low as 80/36, and satting at 78% on home 4L NC. Labs were grossly unremarkable and around baseline for pt. No leukocytosis. Stable anemia of 10.0/33.6. No significant electrolyte abnormalities. Creatinine 1.47, at baseline. Lactic acid WNL. Hepatic function WNL. Continues to test positive for COVID. CXR showed mild bibasilar subsegmental atelectasis or infiltrate and small layering right-sided effusion. EKG with artifact, demonstrated normal sinus rhythm with RBBB. Pt was treated with Solu-Medrol, Mag sulfate, DuoNebs, doxycycline, and ceftriaxone. Pt will be admitted to the hospital for treatment and further evaluation of acute hypoxic respiratory failure in the setting of COPD exacerbation with superimposed pneumonia. Review of Systems Review of Systems: Yes Unobtainable due to mental status [facility] Medical History (Updated 07/06/24 @ 17:08 by Sundar Canales MD) Unspecified dementia, mild, without behavioral disturbance, psychotic disturbance, mood disturbance, and anxiety Paroxysmal A-fib Heart failure with reduced ejection fraction CKD stage 3 due to type 1 diabetes mellitus COPD (chronic obstructive pulmonary disease) Social History Alcohol intake: former Use of substances other than those prescribed or required for medical reasons: Yes Substance Use Type: Marijuana Substance Use Frequency: Occasionally Advance Directives: No Advance Directives Information Provided: Yes Meds Allergies Allergy/AdvReac Type Severity Reaction Status Date / Time cephalexin [From Keflex] Allergy Unknown Verified 07/06/24 04:05 Home Medications ?Medication ?Instructions ?Recorded ?Confirmed ?Last Taken ?Type acetaminophen 325 mg tablet 650 mg PO Q6H PRN Pain 07/06/24 07/06/24 Unknown History albuterol sulfate 90 mcg/actuation 2 puff inhalation Q6H 07/06/24 07/06/24 Unknown History aerosol inhaler amlodipine 5 mg tablet 5 mg PO DAILY 07/06/24 07/06/24 Unknown History amoxicillin 875 mg-potassium 1 tab PO BID 07/06/24 07/06/24 Unknown History clavulanate 125 mg tablet apixaban 5 mg tablet 5 mg PO BID 07/06/24 07/06/24 Unknown History aspirin 81 mg tablet,delayed 81 mg PO DAILY 07/06/24 07/06/24 Unknown History release atorvastatin 40 mg tablet 40 mg PO BEDTIME 07/06/24 07/06/24 Unknown History bisacodyl 10 mg rectal suppository 10 mg HI DAILY PRN if no BM and 07/06/24 07/06/24 Unknown History (Dulcolax (bisacodyl)) MOM not effective clonazepam 0.5 mg tablet 0.5 mg PO BID 07/06/24 07/06/24 Unknown History dextrose 40 % oral gel (Glucose 15 g PO Q15M PRN BS less than 60 07/06/24 07/06/24 Unknown History Gel) doxycycline hyclate 100 mg capsule 100 mg PO BID 07/06/24 07/06/24 Unknown History duloxetine 40 mg capsule,delayed 40 mg PO BID 07/06/24 07/06/24 Unknown History release sprinkle empagliflozin 10 mg tablet 10 mg PO DAILY 07/06/24 07/06/24 Unknown History fluticasone furoate 100 1 inh inhalation DAILY 07/06/24 07/06/24 Unknown History mcg-vilanterol 25 mcg/dose inhalation powder (Breo Ellipta) furosemide 40 mg tablet 40 mg PO DAILY 07/06/24 07/06/24 Unknown History gabapentin 100 mg capsule 200 mg PO TID 07/06/24 07/06/24 Unknown History glucagon HCl 1 mg/mL solution for 1 mg subcut Q20M PRN BS less than 07/06/24 07/06/24 Unknown History injection 60 or unresponsive insulin lispro 100 unit/mL 1 sliding scale dose subcut 07/06/24 07/06/24 Unknown History subcutaneous solution USEASDIRECTD PRN high blood sugar ipratropium 0.5 mg-albuterol 3 mg 3 ml inhalation BID 07/06/24 07/06/24 Unknown History (2.5 mg base)/3 mL nebulization soln magnesium hydroxide 400 mg/5 mL 30 ml PO DAILY PRN if no BM in 3 07/06/24 07/06/24 Unknown History oral suspension (Milk of Magnesia) days melatonin 3 mg tablet 3 mg PO DAILY 07/06/24 07/06/24 Unknown History metoprolol succinate 25 mg 25 mg PO DAILY 07/06/24 07/06/24 Unknown History tablet,extended release 24 hr olanzapine 10 mg tablet 10 mg PO BEDTIME 07/06/24 07/06/24 Unknown History sodium phosphates 19 gram-7 118 ml HI DAILY PRN constipation 07/06/24 07/06/24 Unknown History gram/118 mL enema (Fleet Enema) if no result from laxative supp trazodone 100 mg tablet 100 mg PO DAILY 07/06/24 07/06/24 Unknown History trazodone 150 mg tablet 150 mg PO BEDTIME 07/06/24 07/06/24 Unknown History umeclidinium 62.5 mcg/actuation 1 inh inhalation DAILY 07/06/24 07/06/24 Unknown History blister powder for inhalation (Incruse Ellipta) ziprasidone HCl 80 mg capsule 80 mg PO DAILY 07/06/24 07/06/24 Unknown History Physical Exam Vital Signs and Narrative: Vital Signs: Last Vital Signs Temp 97.6 F 07/06/24 10:07 Pulse 85 07/06/24 10:07 Resp 20 07/06/24 10:07 BP 118/55 L 07/06/24 10:07 Pulse Ox 94 07/06/24 10:07 O2 Del Method High Flow Nasal C annula 07/06/24 10:07 O2 Flow Rate 55 07/06/24 10:07 Oxygen Flow Rate 4 07/06/24 03:58 BMI result Body Mass Index 36.3 Constitutional: Alert, in no acute distress. Mental Status: Oriented to person only, not to place or situation and only partly to time. Eyes: Pupils are equal, round, and reactive to light. Ear, Nose, and Throat: Oropharynx clear, mucous membranes moist. Ears and nose without deformities. Trachea midline. Respiratory: Mild wheezing bilaterally, diminished. Currently on high-flow. Cardiovascular: S1, S2 regular. No murmurs, rubs, or gallops. Gastrointestinal: Abdomen soft, non-tender, non-distended. Normal bowel sounds. Neurologic: Cranial nerves II-XII are grossly intact bilaterally. No focal neurological deficits. Moves all extremities spontaneously. Skin: Warm, dry. Musculoskeletal: No cyanosis or clubbing. Extremities: 2+ bilateral pitting edema. Psychiatric: Normal mood and affect. Results Labs 07/06/24 04:17 07/06/24 04:17 Labs: Laboratory Results - last 24 hr 07/06/24 07/06/24 07/06/24 04:17 04:21 08:54 MCV 98.8 H MCH 29.4 MCHC 29.8 L RDW 15.6 Plt Count 226 MPV 9.7 Immature Gran % (Auto) 0.7 H Neut % (Auto) 69.4 Lymph % (Auto) 19.1 L [place] % (Auto) 10.3 Eos % (Auto) 0.3 Baso % (Auto) 0.2 Lymph # (Auto) 1.7 [place] # (Auto) 0.9 Eos # (Auto) 0.0 Baso # (Auto) 0.0 Abs Immat Gran (auto) 0.06 H Absolute Neuts (auto) 6.3 Absolute Nucleated RBC 0.000 Nucleated RBC % (auto) 0.0 VBG pH 7.36 VBG pCO2 69 VBG pO2 25 VBG HCO3 40 H VBG O2 Saturation 43.0 VBG Base Excess 12.2 Anion Gap 15 Estim Creat Clear Calc 59.3 Estimated GFR 47 Random Glucose 120 H Lactic Acid 1.0 Calcium 8.6 Total Bilirubin 0.3 AST 24 ALT 10 Alkaline Phosphatase 86 B-Natriuretic Peptide 20 Total Protein 6.3 L Albumin 3.1 L Assessment and Plan (1) Acute on chronic hypoxic respiratory failure: Status: Acute (2) Pneumonia: Qualifiers: Pneumonia type: due to unspecified organism Laterality: unspecified laterality Lung location: unspecified part of lung Qualified Code(s): J18.9 - Pneumonia, unspecified organism Status: Inactive Plan Pt is a 69-year-old male with a PMH significant for?paroxysmal AFib on Eliquis, COPD on 4L home O2, HFrEF, CKD stage 3, insulin-dependent type 2 diabetes, alcohol dependence, and dementia who presents to the ED from [facility]?after staff found pt satting at 81% on RA without his nasal cannula on. Pt will be admitted to the hospital for treatment and further evaluation of acute hypoxic respiratory failure in the setting of COPD exacerbation with superimposed pneumonia. Acute on chronic hypoxic respiratory failure in the setting of COPD exacerbation with superimposed pneumonia Tested positive for COVID 06/15/2024, diagnosed with pneumonia T1 2024 and started on azithromycin and doxycycline Desatting into the 70s on home 4L NC, CXR showing likely infiltrate No sepsis: Tachypnea, but no tachycardia, fever, or leukocytosis; lactic acid WNL Will treat with ceftriaxone and doxycycline, started 07/06/2024 Will treat with DuoNebs, Solu-Medrol, guaifenesin Continue high-flow for now, titrate supplemental O2 >90 to pt's baseline 4L NC Monitor respiratory status Paroxysmal AFib Continue metoprolol, Eliquis HTN BP has been soft, hold amlodipine HFrEF Does not appear to be in acute exacerbation BNP WNL at 20, pt with chronic lower leg edema Continue metoprolol, furosemide Insulin-dependent type 2 diabetes Continue Jardiance, sliding-scale insulin Diabetic diet CKD 3 Appears stable, at baseline Dementia/mood disorder Continue home mood stabilizers Full Code Attending:?Dr. Canales DVT Prophylaxis: On Eliquis Pt will require a hospitalization of at least two nights for treatment of?acute chronic hypoxic respiratory failure in the setting of COPD exacerbation with superimposed pneumonia. Given that pt has failed outpatient therapy on p.o. antibiotics, he will require hospital level care for administration of IV antibiotics, supplemental oxygen above baseline on high-flow, IV steroids, and breathing treatments. Quality Stroke Does the patient have a stroke diagnosis?: No VTE Prior VTE?: No VTE Risk Level:: Medical - moderate - high VTE Device Contraindication: Treatment Not Indicated VTE Drug Contraindication: N/A - Med Ordered
--- NOTE | 2024-07-06 13:20 | PC.NURSE ---
Provider aware of intermittent low BPs. Metoprolol held. Pt has intermittent episodes of pulling HFNC off and trying to get out of bed. Easily redirected, camera placed in room
[2024-07-06] MEDS: Aspirin Enteric Coated 81 MG TABLET.DR PO (13:22)
[2024-07-06] MEDS: clonazePAM 0.5 MG TABLET PO ×2 (13:23→23:24)
[2024-07-06] MEDS: Ziprasidone 80 MG CAPSULE PO (13:24)
--- NOTE | 2024-07-06 13:36 | PM.EVENT ---
Event Note Date of Service: 07/06/24 Event Note: hypotension at 13:19 is erronous due to mechine reading( not due to sepsis) ,we checked mannually bp is 100/60 mmhg . Time Spent With Patient Time: Total time managing care of this patient today ____ minutes.
--- NOTE | 2024-07-06 13:42 | PC.NURSE ---
[place] cath failed, pt not able to maintain on. Bed change done.
--- NOTE | 2024-07-06 14:06 | PC.NURSE ---
Pt tolerated pills well one at a time with water
--- NOTE | 2024-07-06 14:42 | PC.NURSE ---
Pt continuing to not tolerate HFNC well, Provider and RT aware and pt on an oxymask now per RT, sating 89-92%.
[2024-07-06] MEDS: Albuterol/Iprat 2.5/0.5MG 3 ML AMPUL.NEB INHALE ×2 (14:47→19:07)
[2024-07-06] MEDS: 0.9 % Sodium Chloride Flush 3 ML SYRINGE IVFLUSH (15:02)
[2024-07-06] MEDS: Gabapentin 100 MG CAPSULE 200 MG PO ×2 (15:02→23:23)
[2024-07-06] MEDS: Insulin Lispro 100 UNIT/ML 3 ML VIAL SUBCUT ×2 (17:43→23:27)
[2024-07-06 17:46] LABS: Glucose, Whole Blood 164 mg/dL (60-115)
--- NOTE | 2024-07-06 18:21 | PC.NURSE ---
Per admitting provider, titrate pt down on oxymask. Pt noted to desat to 80% on 11L, titrated up again and not improving, RT at bedside.
--- NOTE | 2024-07-06 18:38 | PC.NURSE ---
Pt improved on NRB at 15 L O2. Provider aware
[2024-07-06 19:01] LABS: COVID-19 Test Negative (Negative); IDNOW Serial# 08D9AD1C
[2024-07-06] MEDS: methylPREDNISolone Sod Succ 125 MG/2 ML VIAL IVPUSH (19:13)
--- NOTE | 2024-07-06 21:19 | PC.NURSE ---
tolerating mask well on 4L/nc pox 96%. assisted with urinal. no attempts out of bed.
[2024-07-06 23:10] LABS: Glucose, Whole Blood 177 mg/dL (60-115)
[2024-07-06] MEDS: OLANZapine 10 MG TABLET PO (23:23)
[2024-07-06] MEDS: Atorvastatin Calcium 40 MG TABLET PO (23:23)
[2024-07-06] MEDS: traZODone HCL 50 MG TABLET 150 MG PO (23:23)
[2024-07-06] MEDS: Apixaban 5 MG TABLET PO (23:23)
[2024-07-06] MEDS: DULoxetine HCl 20 MG CAPSULE.DR 40 MG PO (23:24)
[2024-07-07] VITALS (26 sets, daily range): BP systolic 113–167; BP diastolic 49–87; PULSE 82–104; RESP 12–24; TEMP 36–36.8; O2SAT 88–100
[2024-07-07] MEDS: methylPREDNISolone Sod Succ 125 MG/2 ML VIAL 60 MG IVPUSH (06:28)
[2024-07-07] MEDS: cefTRIAXone sodium 1 GM VIAL IVPUSH (06:29)
[2024-07-07 07:46] LABS: Anion Gap 13 (12-20); Blood Urea Nitrogen 18 mg/dL (9-16); Calcium 8.8 mg/dL (8.4-10.2); Carbon Dioxide 32 mmol/L (22-29); Chloride 102 mmol/L (96-108); Creatinine Clr Calc Pharmacy 75.8; Estimated Glomerular Filt Rate > 60; Glucose Random 161 mg/dL (60-115); Potassium 4.2 mmol/L (3.3-5.1); Sodium 143 mmol/L (135-145)
[2024-07-07 07:56] LABS: Glucose, Whole Blood 159 mg/dL (60-115)
[2024-07-07] MEDS: Fluticasone/Vilanterol 100/25 BLST.W.DEV 1 PUFF INHALE (08:06)
[2024-07-07] MEDS: Albuterol/Iprat 2.5/0.5MG 3 ML AMPUL.NEB INHALE ×4 (08:06→21:11)
[2024-07-07] MEDS: Acetaminophen 325 MG TABLET 650 MG PO (08:21)
[2024-07-07] MEDS: Ziprasidone 80 MG CAPSULE PO (08:22)
[2024-07-07] MEDS: Gabapentin 100 MG CAPSULE 200 MG PO (08:22)
[2024-07-07] MEDS: Metoprolol Succinate ER 25 MG TAB.ER.24H PO (08:22)
[2024-07-07] MEDS: Apixaban 5 MG TABLET PO ×2 (08:22→20:40)
[2024-07-07] MEDS: Empagliflozin 10 MG TABLET PO (08:22)
[2024-07-07] MEDS: Furosemide 40 MG TABLET PO (08:22)
[2024-07-07] MEDS: traZODone HCL 100 MG TABLET PO (08:22)
[2024-07-07] MEDS: DULoxetine HCl 20 MG CAPSULE.DR 40 MG PO (08:22)
[2024-07-07] MEDS: Aspirin Enteric Coated 81 MG TABLET.DR PO (08:23)
[2024-07-07] MEDS: clonazePAM 0.5 MG TABLET PO ×2 (08:23→20:40)
[2024-07-07] MEDS: Insulin Lispro 100 UNIT/ML 3 ML VIAL SUBCUT ×4 (08:23→20:40)
[2024-07-07] MEDS: 0.9 % Sodium Chloride Flush 3 ML SYRINGE IVFLUSH ×3 (08:23→23:39)
[2024-07-07] MEDS: Doxycycline Hyclate 100 MG in 0.9 % Sodium Chloride 250 ML 166.67 MG IV (08:23)
--- NOTE | 2024-07-07 09:55 | MHC.CM.PN ---
IMM 07/07/24, Pt is LTC at [facility], contacts in chart are his parents, whom he said are . He gave me the name and # for his sister: Annel Hull, , CM placed call, no answer and not able to leave a message. Have requested update contact info from [facility], will update chart when it is received. DCP: return to [facility] via BLS. CM to follow for DC needs.
--- NOTE | 2024-07-07 10:40 | HO.PM.IMPN ---
Subjective Subjective Date of Service: 07/07/24 Interval History: sob/hypoxia Review of Systems sob seems similar hypoxic on high flow /nbrm no fevers Physical Exam Vital Signs: Vital Signs: Last Vital Signs Temp 96.8 F 07/07/24 07:41 Pulse 87 07/07/24 08:12 Resp 24 H 07/07/24 10:34 BP 167/79 H 07/07/24 07:41 Pulse Ox 98 07/07/24 07:41 O2 Del Method High Flow Nasal C annula 07/07/24 07:41 O2 Flow Rate 50 07/07/24 07:41 Oxygen Flow Rate 4 07/06/24 03:58 BMI result Body Mass Index 36.3 Appearance: Alert.? Oriented,somewhat difficult to talk due to sob cvs: rrr, [id number] . res: air entry somewhat tight and diminshed. abd: no rebound or guarding ,nt, bs present. ext pulses present , no cyanosis . neuro: moves ext. Objective Data Active Medications Acetaminophen (Acetaminophen 325 Mg Tablet) 650 mg PO Q6H PRN PRN Reason: Pain, Mild 1-3,fever,headache Last Admin: 07/07/24 08:21 Dose: 650 mg Documented By: ALESSANDRO Albuterol/Ipratropium (Albuterol/Iprat 2.5/0.5mg 3 Ml Ampul.Neb) 3 ml INHALE RQ4H WHILE AWAKE [facility] Last Admin: 07/07/24 08:06 Dose: 3 ml Documented By: ALICJA Albuterol/Ipratropium (Albuterol/Iprat 2.5/0.5mg 3 Ml Ampul.Neb) 3 ml INHALE RQ4H WHILE AWAKE PRN PRN Reason: Shortness of Breath/Wheezing Apixaban (Apixaban 5 Mg Tablet) 5 mg PO BID [facility] Last Admin: 07/07/24 08:22 Dose: 5 mg Documented By: ALESSANDRO Aspirin (Aspirin Enteric Coated 81 Mg Tablet.) 81 mg PO DAILY [facility] Last Admin: 07/07/24 08:23 Dose: 81 mg Documented By: ALESSANDRO Atorvastatin Calcium (Atorvastatin Calcium 40 Mg Tablet) 40 mg PO BEDTIME [facility] Last Admin: 07/06/24 23:23 Dose: 40 mg Documented By: JEREMIAH-NATHANIELZEB Bisacodyl (Bisacodyl 10 Mg Supp.Rect) 10 mg [place] DAILY PRN PRN Reason: if no BM and MOM not effective Calcium Carbonate (Calcium Carbonate 750 Mg Tab.Chew) 750 mg PO Q4H PRN PRN Reason: Heartburn Ceftriaxone Sodium (Ceftriaxone Sodium 1 Gm Vial) 1 gm IVPUSH Q24H [facility] Last Admin: 07/07/24 06:29 Dose: 1 gm Documented By: JEREMIAH-NATHANIELZENeel Clonazepam (Clonazepam 0.5 Mg Tablet) 0.5 mg PO BID [facility] Last Admin: 07/07/24 08:23 Dose: 0.5 mg Documented By: ALESSANDRO Duloxetine HCl (Duloxetine Hcl 20 Mg Capsule.Dr) 40 mg PO BID [facility] Last Admin: 07/07/24 08:22 Dose: 40 mg Documented By: ALESSANDRO Empagliflozin (Empagliflozin 10 Mg Tablet) 10 mg PO DAILY [facility] Last Admin: 07/07/24 08:22 Dose: 10 mg Documented By: ALESSANDRO Fluticasone/Vilanterol (Fluticasone/Vilanterol 100/25 Blst.W.Dev) 1 puff INHALE DAILY [facility] Last Admin: 07/07/24 08:06 Dose: 1 puff Documented By: ALICJA Furosemide (Furosemide 40 Mg Tablet) 40 mg PO DAILY [facility]; Protocol Last Admin: 07/07/24 08:22 Dose: 40 mg Documented By: ALESSANDRO Gabapentin (Gabapentin 100 Mg Capsule) 200 mg PO TID [facility] Last Admin: 07/07/24 08:22 Dose: 200 mg Documented By: ALESSANDRO Glucose (Glucose Gel 15 Gm Gel..Gram.) 15 gm PO Q15M PRN; Protocol PRN Reason: per Hypoglycemia Standing Ord. Guaifenesin/Dextromethorphan (Guaifenesin Dm 200/20/10 Ml 10 Ml Syrup) 10 ml PO Q4H PRN PRN Reason: Cough Doxycycline Hyclate 100 mg/ (Sodium Chloride) 250 mls @ 166.67 mls/hr IV Q12H [facility] Last Admin: 07/07/24 08:23 Dose: 166.67 mls/hr Documented By: ALESSANDRO Dextrose (D10) 250 mls @ 750 mls/hr IV Q15M PRN; Protocol PRN Reason: per Hypoglycemia Standing Ord. Insulin Human Lispro (Insulin Lispro 100 Unit/Ml 3 Ml Vial) 0 unit SUBCUT QIDACHS [facility]; Protocol Last Admin: 07/07/24 08:23 Dose: 2 unit Documented By: ALESSANDRO Magnesium Hydroxide (Milk Of Magnesia 30 Ml Oral.Susp) 30 ml PO DAILY PRN PRN Reason: Constipation Melatonin (Melatonin 3 Mg Tablet) 6 mg PO BEDTIME PRN PRN Reason: Insomnia Methylprednisolone Sodium Succinate (Methylprednisolone Sod Succ 125 Mg/2 Ml Vial) 60 mg IVPUSH Q6H [facility] Last Admin: 07/07/24 06:28 Dose: 60 mg Documented By: LISETTE Metoprolol Succinate (Metoprolol Succinate Er 25 Mg Tab.Er.24h) 25 mg PO DAILY [facility]; Protocol Last Admin: 07/07/24 08:22 Dose: 25 mg Documented By: ALESSANDRO Olanzapine (Olanzapine 10 Mg Tablet) 10 mg PO BEDTIME [facility] Last Admin: 07/06/24 23:23 Dose: 10 mg Documented By: LISETTE Ondansetron HCl (Ondansetron Hcl 4 Mg/2 Ml Vial) 4 mg IVPUSH Q8H PRN PRN Reason: Nausea and Vomiting Sodium Biphosphate/Sodium Phosphate (Sodium Phosphate,Mcintosh-Dibasic 133 Ml Enema) 118 ml [place] DAILY PRN PRN Reason: constipation if no result from laxative supp Sodium Chloride (0.9 % Sodium Chloride Flush 3 Ml Syringe) 3 ml IVFLUSH QSHIFT [facility] Last Admin: 07/07/24 08:23 Dose: 3 ml Documented By: ALESSANDRO Trazodone HCl (Trazodone Hcl 100 Mg Tablet) 100 mg PO DAILY [facility] Last Admin: 07/07/24 08:22 Dose: 100 mg Documented By: ALESSANDRO Trazodone HCl (Trazodone Hcl 50 Mg Tablet) 150 mg PO BEDTIME [facility] Last Admin: 07/06/24 23:23 Dose: 150 mg Documented By: LISETTE Ziprasidone (Ziprasidone 80 Mg Capsule) 80 mg PO DAILY [facility] Last Admin: 07/07/24 08:22 Dose: 80 mg Documented By: ALESSANDRO Labs 07/06/24 04:17 07/07/24 06:44 Labs: Laboratory Results - last 24 hr 01/23/25 01/23/25 01/23/25 17:23 18:44 23:04 Hold Purple Top Anion Gap Estim Creat Clear Calc Estimated GFR POC Glucose 164 H 177 H Random Glucose Calcium COVID-19 ([facility]) Negative COVID-19 Clin Com See Note 07/07/24 07/07/24 06:44 07:39 Hold Purple Top SEE NOTE Anion Gap 13 Estim Creat Clear Calc 75.8 Estimated GFR > 60 POC Glucose 159 H Random Glucose 161 H Calcium 8.8 COVID-19 ([facility]) COVID-19 Clin Com Assessment and Plan (1) Hypoxia: Status: Acute (2) Acute on chronic hypoxic respiratory failure: Status: Acute Assessment and Plan: 69-year-old male with a PMH significant for?paroxysmal AFib on Eliquis, COPD on 4L home O2, HFrEF, CKD stage 3, insulin-dependent type 2 diabetes, alcohol dependence, and dementia who presents to the ED from [facility]?after staff found pt satting at 81% on RA without his nasal cannula on. Pt will be admitted to the hospital for treatment and further evaluation of acute hypoxic respiratory failure in the setting of COPD exacerbation with superimposed pneumonia. Acute on chronic hypoxic respiratory failure in the setting of COPD exacerbation with superimposed pneumonia Tested positive for COVID 06/15/2024, diagnosed with pneumonia T1 2024 and started on azithromycin and doxycycline. patient is sat in 80's with high flow /nbrm added vbg,cxr. started on nebs ,iv steriods ,antibiotics , onhigh flow /nbrm. Paroxysmal AFib Continue metoprolol, Eliquis HTN BP has been soft, hold amlodipine HFrEF- not appear to be in acute exacerbation BNP WNL at 20, pt with chronic lower leg edema Continue metoprolol, furosemide Insulin-dependent type 2 diabetes Continue Jardiance, sliding-scale insulin Diabetic diet CKD 3 Appears stable, at baseline Dementia/mood disorder Continue home mood stabilizers Patient will benefit from ICU level of care due to Acute on chronic hypoxic respiratory failure in the setting of COPD exacerbation with superimposed pneumonia-respiratory status worsening even with nebs,steriods ,antibiotics, high flow/nbrm Quality Stroke Does the patient have a stroke diagnosis?: No VTE Prior VTE?: No VTE Risk Level:: Medical - moderate - high VTE Device Contraindication: Treatment Not Indicated VTE Drug Contraindication: N/A - Med Ordered
[2024-07-07 10:46] LABS: Venous Blood Gas Refer to POC result
[2024-07-07 10:46] LABS: VBG Base Excess 9.8 mmol/L; VBG HCO3 35 mmol/L (22-26); VBG pCO2 54 mmHg; VBG pH 7.42 (7.32-7.43); VBG pO2 42 mmHg
[2024-07-07 11:52] LABS: Glucose, Whole Blood 186 mg/dL (60-115)
[2024-07-07] MEDS: Bumetanide 1 MG/4 ML VIAL IVPUSH ×2 (12:11→17:00)
[2024-07-07] MEDS: Albumin Human 25 % 100 ML IV ×3 (12:11→23:39)
--- NOTE | 2024-07-07 13:01 | P.CONPL_ITS ---
History of Present Illness History of Present Illness Consult date: 07/07/24 Chief complaint: pneumonia, hypoxia Narrative: This is an inpt pulmonary consultation. The patient is a 69-year-old male with a PMH significant for?paroxysmal AFib on Eliquis, COPD on 4L home O2, HFrEF, CKD stage 3, insulin-dependent type 2 diabetes, alcohol dependence, and dementia who presents to the ED from [facility]?after staff found pt satting at 81% on RA without his nasal cannula on. Pt previously tested positive for COVID at the facility on 06/17/2024, and recently diagnosed with pneumonia and started on azithromycin doxycycline 2 days ago on 07/04/2024. At the facility pt has been experiencing increasing shortness of breath with cough. Pt is alert and oriented to self only and a rather poor historian, but complains only of difficulty breathing, pt denies cough, though as noted to be coughing during interview and exam. In the emergency room pt was noted to be desatting into the 70s and placed on high-flow. I personally reviewed his CT chest with a dense consolidation in the RLL. Currently on broad spectrum on HF. Review of Systems 2 Review of Systems: Yes Other (patient is demented at baseline) Constitutional: Constitutional: Reports no additional constitutional complaints, Denies chills, Denies fever(s) and Denies night sweats Eyes: Eyes: Reports no additional eye complaints, Denies blurry vision, Denies change in vision, Denies diplopia, Denies eye discharge, Denies loss of vision and Denies eye pain ENT: Denies dizziness Cardiovascular: Cardiovascular: Reports no additional cardiovascular complaints, Denies chest pain, Denies lightheadedness, Denies Loss of Consciousness and Reports dyspnea Respiratory: Respiratory: Reports no additional respiratory complaints and Reports dyspnea Gastrointestinal: Gastrointestinal: Reports no additional gastrointestinal complaints, Denies abdominal pain, Denies melena, Denies hematochezia, Denies change in bowel habits and Denies change in stool character Genitourinary: Genitourinary: Reports no additional male genitourinary complaints, Denies hematuria, Denies oliguria, Denies difficulty urinating, Denies dysuria, Denies urinary frequency, Denies urinary hesitancy, Denies urinary incontinence and Denies urinary urgency Musculoskeletal: Musculoskeletal: Reports no additional musculoskeletal complaints, Denies numbness and Denies tingling Neurologic: Reports confusion (patient has dementia), Denies dizziness, Denies loss of vision, Denies numbness and Denies tingling Psychiatric: Psychiatric: Reports no additional psychiatric complaints and Reports confusion (patient has dementia) Endocrine: Endocrine: Reports no additional endocrine complaints Hematologic/Lymphatic: Hematologic/Lymphatic: Reports no additional hematologic/lymphatic complaints Allergic/Immunologic: Allergic/Immunologic: Reports no additional allergic/immunologic complaints [facility] Past Medical History Medical History (Updated 07/07/24 @ 13:44 by Emanuel Pantoja MD) Unspecified dementia, mild, without behavioral disturbance, psychotic disturbance, mood disturbance, and anxiety Paroxysmal A-fib Heart failure with reduced ejection fraction CKD stage 3 due to type 1 diabetes mellitus COPD (chronic obstructive pulmonary disease) Social History Social History Household Members: Unknown / Unable to assess Housing: Unknown / Unable to assess Alcohol intake: former Patient Tobacco Use Status: Tobacco use Unknown Substance Use Type: Marijuana service: No Meds Allergies Allergy/AdvReac Type Severity Reaction Status Date / Time cephalexin [From Keflex] Allergy Unknown Verified 07/06/24 04:05 Active Medications: Current Medications Acetaminophen (Acetaminophen 325 Mg Tablet) 650 mg PO Q6H PRN PRN Reason: Pain, Mild 1-3,fever,headache Last Admin: 07/07/24 08:21 Dose: 650 mg Albuterol/Ipratropium (Albuterol/Iprat 2.5/0.5mg 3 Ml Ampul.Neb) 3 ml INHALE RQ4H WHILE AWAKE [facility] Last Admin: 07/07/24 11:38 Dose: 3 ml Apixaban (Apixaban 5 Mg Tablet) 5 mg PO BID [facility] Last Admin: 07/07/24 08:22 Dose: 5 mg Bumetanide (Bumetanide 1 Mg/4 Ml Vial) 1 mg IVPUSH BID@0900,1700 [facility]; Protocol Last Admin: 07/07/24 12:11 Dose: 1 mg Clonazepam (Clonazepam 0.5 Mg Tablet) 0.5 mg PO BID [facility] Last Admin: 07/07/24 08:23 Dose: 0.5 mg Fluticasone/Vilanterol (Fluticasone/Vilanterol 100/25 Blst.W.Dev) 1 puff INHALE DAILY [facility] Last Admin: 07/07/24 08:06 Dose: 1 puff Glucose (Glucose Gel 15 Gm Gel..Gram.) 15 gm PO Q15M PRN; Protocol PRN Reason: per Hypoglycemia Standing Ord. Dextrose (D10) 250 mls @ 750 mls/hr IV Q15M PRN; Protocol PRN Reason: per Hypoglycemia Standing Ord. Albumin Human (Kedbumin 25 %) 100 mls @ 100 mls/hr IV Q6H [facility] Stop: 07/08/24 06:44 Last Admin: 07/07/24 12:11 Dose: 100 mls/hr Insulin Human Lispro (Insulin Lispro 100 Unit/Ml 3 Ml Vial) 0 unit SUBCUT QIDACHS [facility]; Protocol Last Admin: 07/07/24 12:11 Dose: 2 unit Melatonin (Melatonin 3 Mg Tablet) 6 mg PO BEDTIME PRN PRN Reason: Insomnia Olanzapine (Olanzapine 10 Mg Tablet) 10 mg PO BEDTIME [facility] Last Admin: 07/06/24 23:23 Dose: 10 mg Ondansetron HCl (Ondansetron Hcl 4 Mg/2 Ml Vial) 4 mg IVPUSH Q8H PRN PRN Reason: Nausea and Vomiting Sodium Chloride (0.9 % Sodium Chloride Flush 3 Ml Syringe) 3 ml IVFLUSH QSHIFT [facility] Last Admin: 07/07/24 08:23 Dose: 3 ml Ziprasidone (Ziprasidone 80 Mg Capsule) 80 mg PO DAILY [facility] Last Admin: 07/07/24 08:22 Dose: 80 mg Home Medications ?Medication ?Instructions ?Recorded ?Confirmed ?Last Taken ?Type acetaminophen 325 mg tablet 650 mg PO Q6H PRN Pain 07/06/24 07/06/24 Unknown History albuterol sulfate 90 mcg/actuation 2 puff inhalation Q6H 07/06/24 07/06/24 Unknown History aerosol inhaler amlodipine 5 mg tablet 5 mg PO DAILY 07/06/24 07/06/24 Unknown History amoxicillin 875 mg-potassium 1 tab PO BID 07/06/24 07/06/24 Unknown History clavulanate 125 mg tablet apixaban 5 mg tablet 5 mg PO BID 07/06/24 07/06/24 Unknown History aspirin 81 mg tablet,delayed 81 mg PO DAILY 07/06/24 07/06/24 Unknown History release atorvastatin 40 mg tablet 40 mg PO BEDTIME 07/06/24 07/06/24 Unknown History bisacodyl 10 mg rectal suppository 10 mg [place] DAILY PRN if no BM and 07/06/24 07/06/24 Unknown History (Dulcolax (bisacodyl)) MOM not effective clonazepam 0.5 mg tablet 0.5 mg PO BID 07/06/24 07/06/24 Unknown History dextrose 40 % oral gel (Glucose 15 g PO Q15M PRN BS less than 60 07/06/24 07/06/24 Unknown History Gel) doxycycline hyclate 100 mg capsule 100 mg PO BID 07/06/24 07/06/24 Unknown History duloxetine 40 mg capsule,delayed 40 mg PO BID 07/06/24 07/06/24 Unknown History release sprinkle empagliflozin 10 mg tablet 10 mg PO DAILY 07/06/24 07/06/24 Unknown History fluticasone furoate 100 1 inh inhalation DAILY 07/06/24 07/06/24 Unknown History mcg-vilanterol 25 mcg/dose inhalation powder (Breo Ellipta) furosemide 40 mg tablet 40 mg PO DAILY 07/06/24 07/06/24 Unknown History gabapentin 100 mg capsule 200 mg PO TID 07/06/24 07/06/24 Unknown History glucagon HCl 1 mg/mL solution for 1 mg subcut Q20M PRN BS less than 07/06/24 07/06/24 Unknown History injection 60 or unresponsive insulin lispro 100 unit/mL 1 sliding scale dose subcut 07/06/24 07/06/24 Unknown History subcutaneous solution USEASDIRECTD PRN high blood sugar ipratropium 0.5 mg-albuterol 3 mg 3 ml inhalation BID 07/06/24 07/06/24 Unknown History (2.5 mg base)/3 mL nebulization soln magnesium hydroxide 400 mg/5 mL 30 ml PO DAILY PRN if no BM in 3 07/06/24 07/06/24 Unknown History oral suspension (Milk of Magnesia) days melatonin 3 mg tablet 3 mg PO DAILY 07/06/24 07/06/24 Unknown History metoprolol succinate 25 mg 25 mg PO DAILY 07/06/24 07/06/24 Unknown History tablet,extended release 24 hr olanzapine 10 mg tablet 10 mg PO BEDTIME 07/06/24 07/06/24 Unknown History sodium phosphates 19 gram-7 118 ml [place] DAILY PRN constipation 07/06/24 07/06/24 Unknown History gram/118 mL enema (Fleet Enema) if no result from laxative supp trazodone 100 mg tablet 100 mg PO DAILY 07/06/24 07/06/24 Unknown History trazodone 150 mg tablet 150 mg PO BEDTIME 07/06/24 07/06/24 Unknown History umeclidinium 62.5 mcg/actuation 1 inh inhalation DAILY 07/06/24 07/06/24 Unknown History blister powder for inhalation (Incruse Ellipta) ziprasidone HCl 80 mg capsule 80 mg PO DAILY 07/06/24 07/06/24 Unknown History Physical Exam 2 Vital Signs: Vital Signs: Last Vital Signs Temp 98.2 F 07/07/24 12:20 Pulse 100 07/07/24 12:20 Resp 12 07/07/24 12:27 BP 139/87 07/07/24 12:20 Pulse Ox 100 07/07/24 12:20 O2 Del Method High Flow Nasal C annula 07/07/24 12:20 O2 Flow Rate 40 07/07/24 12:20 FiO2 60 07/07/24 12:20 Oxygen Flow Rate 4 07/06/24 03:58 BMI result Body Mass Index 36.3 Appearance: Alert.? Oriented,somewhat difficult to talk due to sob cvs: rrr, [id number] . res: air entry somewhat tight and diminshed. abd: no rebound or guarding ,nt, bs present. ext pulses present , no cyanosis . neuro: moves ext. Const: General: confusion (patient has dementia) Orientation/consciousness: confusion (patient has dementia) Neuro: General: confusion (patient has dementia) Results Laboratory Findings 07/06/24 04:17 07/07/24 06:44 Abnormal lab findings: Abnormal Labs 07/06/24 07/06/24 07/06/24 04:17 04:21 17:23 RBC 3.40 L Hgb 10.0 L Hct 33.6 L MCV 98.8 H MCHC 29.8 L Immature Gran % (Auto) 0.7 H Lymph % (Auto) 19.1 L Abs Immat Gran (auto) 0.06 H VBG HCO3 40 H Carbon Dioxide 30 H BUN 18 H Creatinine 1.47 H POC Glucose 164 H Random Glucose 120 H Total Protein 6.3 L Albumin 3.1 L 07/06/24 07/07/24 07/07/24 23:04 06:44 07:39 RBC Hgb Hct MCV MCHC Immature Gran % (Auto) Lymph % (Auto) Abs Immat Gran (auto) VBG HCO3 Carbon Dioxide 32 H BUN 18 H Creatinine POC Glucose 177 H 159 H Random Glucose 161 H Total Protein Albumin 07/07/24 07/07/24 10:40 11:33 RBC Hgb Hct MCV MCHC Immature Gran % (Auto) Lymph % (Auto) Abs Immat Gran (auto) VBG HCO3 35 H Carbon Dioxide BUN Creatinine POC Glucose 186 H Random Glucose Total Protein Albumin Microbiology: Microbiology 07/06/24 08:59 Blood - Venous Blood Culture - Preliminary No growth after 24 hours. 07/06/24 08:54 Blood - Venous Blood Culture - Preliminary No growth after 24 hours. Assessment and Plan (1) Hypoxia: Status: Acute (2) Acute on chronic hypoxic respiratory failure: Status: Acute (3) COVID-19: Status: Acute (4) Pneumonia: Qualifiers: Laterality: unspecified laterality Lung location: unspecified part of lung Pneumonia type: due to unspecified organism Qualified Code(s): J18.9 - Pneumonia, unspecified organism Status: Inactive Plan continue HF, BIPAP if no better or worsens continue broad antibiotics continue solumedrol diuresis as tolerated ISS repeat CXR guarded Addendum: pt transferred to the ICU Procedures Date of Service Date of Service: 07/07/24
[2024-07-07 13:04] LABS: COVID-19 Test Negative (Negative); IDNOW Serial# 55D5AD1C
[2024-07-07] MEDS: LORazepam 2 MG/ML VIAL 0.5 MG IVPUSH (13:11)
--- NOTE | 2024-07-07 13:41 | P.PNCC_ITS ---
Subjective Subjective Date of Service: 07/07/24 Interval History: 69-year-old gentleman with underlying AFib on Eliquis, COPD on 4 L O2, systolic heart failure, CKD stage 3, diabetes mellitus admitted on 07/06/2024 with worsening dyspnea and hypoxia requiring high-flow nasal cannula support. Patient also noted to have significant bilateral lower extremity edema. He was started on empiric antibiotics, however his respiratory status continued to deteriorate requiring transfer to intensive care unit for close monitoring. Critical Care Time (minutes): 60 Physical Exam 2 Vital Signs: Vital Signs: Last Vital Signs Temp 98.2 F 07/07/24 12:20 Pulse 102 H 07/07/24 13:00 Resp 18 07/07/24 13:00 BP 151/62 H 07/07/24 13:00 Pulse Ox 90 L 07/07/24 13:00 O2 Del Method High Flow Nasal C annula 07/07/24 13:00 O2 Flow Rate 40 07/07/24 13:00 FiO2 50 07/07/24 13:00 Oxygen Flow Rate 4 07/06/24 03:58 BMI result Body Mass Index 36.3 Const: General: no acute distress, alert and awake Nutritional Appearance: obese and Edematous Eyes: Sclerae: sclerae normal EOM: EOMs intact bilaterally Neck: Neck: Yes no lymphadenopathy, Yes trachea midline and Yes supple Resp: Effort & Inspection: normal respiratory effort and no respiratory distress Auscultation: crackles (Bilateral) Cardio: Rate: tachycardic Rhythm: regular rhythm Heart sounds: no gallops, no murmurs and no rubs GI: Palpation (GI): Soft to palpation and Other GI palpation findings present ( Nontender) Auscultation: normal bowel sounds Extrem: General: No clubbing, No cyanosis and Yes edema (2+ bilateral) Objective Data Labs 07/06/24 04:17 07/07/24 06:44 Labs: Laboratory Results - last 24 hr 07/06/24 07/06/24 07/06/24 17:23 18:44 23:04 Hold Purple Top VBG pH VBG pCO2 VBG pO2 VBG HCO3 VBG O2 Saturation VBG Base Excess Sodium Potassium Chloride Carbon Dioxide Anion Gap BUN Creatinine Estim Creat Clear Calc Estimated GFR POC Glucose 164 H 177 H Random Glucose Calcium COVID-19 ([facility]) Negative COVID-19 Clin Com See Note 07/07/24 07/07/24 07/07/24 06:44 07:39 10:40 Hold Purple Top SEE NOTE VBG pH 7.42 VBG pCO2 54 VBG pO2 42 VBG HCO3 35 H VBG O2 Saturation 74.0 VBG Base Excess 9.8 Sodium 143 Potassium 4.2 Chloride 102 Carbon Dioxide 32 H Anion Gap 13 BUN 18 H Creatinine 1.15 Estim Creat Clear Calc 75.8 Estimated GFR > 60 POC Glucose 159 H Random Glucose 161 H Calcium 8.8 COVID-19 ([facility]) COVID-19 [id number] Com 07/07/24 07/07/24 11:33 12:20 Hold Purple Top VBG pH VBG pCO2 VBG pO2 VBG HCO3 VBG O2 Saturation VBG Base Excess Sodium Potassium Chloride Carbon Dioxide Anion Gap BUN Creatinine Estim Creat Clear Calc Estimated GFR POC Glucose 186 H Random Glucose Calcium COVID-19 ([facility]) Negative COVID-19 [email or web address] Com See Note Microbiology Microbiology Results: Microbiology 07/06/24 08:59 Blood - Venous Blood Culture - Preliminary No growth after 24 hours. 07/06/24 08:54 Blood - Venous Blood Culture - Preliminary No growth after 24 hours. Progress Note: A&P Assessment and plan (1) Acute on chronic hypoxic respiratory failure: Status: Acute (2) COPD (chronic obstructive pulmonary disease): Status: Acute (3) CKD stage 3 due to type 1 diabetes mellitus: Status: Acute (4) Heart failure with reduced ejection fraction: Status: Acute (5) Paroxysmal A-fib: Status: Acute Plan Assessment: 69-year-old gentleman with underlying systolic heart failure AFib, COPD on 4 L of O2 and CKD admitted with dyspnea and worsening hypoxia Plan: Neuro: No acute issues. Cardiac: Exacerbation of underlying chronic systolic congestive heart failure. Continue with empiric diuresis. 2D echocardiogram is pending. Underlying AFib. Pulmonary: Acute on chronic hypoxic respiratory failure, likely secondary to exacerbation of underlying congestive heart failure. Continue to titrate off supplemental oxygen as tolerated. Underlying fully dependent COPD. Renal: JESSIKA, likely secondary to congestive heart failure exacerbation, improving, non oliguric. Continue to monitor renal indices and urine output. Endo: No acute issues. GI: No acute issues. ID: No acute issues Heme/Onc: No acute issues. Psych: No acute issues. Miscellaneous: No acute issues. Prophylaxis: Apixaban Diet: Cardiac Critical care time spent: 60 minutes Quality Stroke Does the patient have a stroke diagnosis?: No VTE Prior VTE?: No VTE Risk Level:: Medical - moderate - high VTE Device Contraindication: Treatment Not Indicated VTE Drug Contraindication: N/A - Med Ordered
[2024-07-07 16:48] LABS: Glucose, Whole Blood 183 mg/dL (60-115)
--- NOTE | 2024-07-07 17:00 | CA_ITS ---
Transthoracic Echocardiogram Patient (Last, First, Middle): Lamin Powers, Gender: Male Date of : 1955 Age: 69 Procedure Date: 07/07/2024 Procedure Type: Transthoracic Echocardiogram Location: ICU Height: 177.8 cm Weight: 114.76 kg BSA: 2.31 m2 Heart Rate: bpm BP: 137 / 43 mmHg Outboard Motor Mechanic: Referring MD: Emanuel Pantoja MD Sponge Diver: Tej Isaac MD Symptoms: Dyspnea Study Quality: Technically Difficult due to pt position ECG Rhythm: Sinus Conclusions: - 1. Technically limited study despite use of contrast agent 2. Hyperdynamic LV ejection fraction greater than 70% with mild LVH 3. Limited visualization of cardiac valves with normal cardiac valvular Dopplers 4. Normal measured RV systolic pressure Findings Procedure Information Contrast agent, definity, is being given per protocol without apparent complications. Left Ventricle Normal left ventricular cavity size. There is mildly increased left ventricular wall thickness. The left ventricular systolic function is hyperdynamic. The visually estimated ejection fraction is >70%. Regional wall motion abnormalities can not be excluded due to suboptimal endocardial definition. Diastolic function is indeterminate on the basis of available data. Right Ventricle The right ventricle was not well visualized. Mildly increased right ventricular cavity size. Atria The left atrium was not well visualized. Interatrial shunt cannot be excluded. The right atrium was not well visualized. Aortic Valve The aortic valve was not well visualized. There is no aortic valve stenosis. There is no aortic valve regurgitation. Mitral Valve The mitral valve was not well visualized. There is no mitral valve stenosis. Pulmonic Valve The pulmonic valve was not well visualized. Tricuspid Valve The tricuspid valve was not well visualized. There is trace tricuspid valve regurgitation. The right ventricular systolic pressure is normal. The right ventricular systolic pressure is 18 mmHg. Normal right atrial pressure. There is no evidence of pulmonary hypertension. Great Vessels The aorta was not well visualized. The pulmonary artery was not well visualized. Venous The inferior vena cava was not well visualized. The inferior vena cava is normal in size. Pericardium/Pleural The pericardium was not well visualized. Prior Study Comparison No prior study available for comparison. Measurements 2D Linear Measurements IVSd: 1.26 0.6-0.9/0.6-1.0 cm LVIDd: 3.56 3.9-5.3/4.2-5.9 cm LVIDd Index: 1.54 2.4-3.2/2.2-3.1 cm/m2 LVIDs: 1.94 2.0-3.6 cm LVPWd: 1.22 0.7-1.1 cm Ao Root: 3.50 2.1-3.5 cm LA Diam: 3.30 2.7-3.8/3.0-4.0 cm LAIDs Index: 1.43 1.5-2.3 cm/m2 LV Mass: 182.24 67-162/88-224 g LV Mass Index: 78.89 43-95/49-115 g/m2 LVOT Diam: 2.30 3.0+(-)1.3 cm Mitral Valve MV Pk E: 0.85 MV PK A: 1.18 MV Decel Time: 160.00 E/A: 0.70 E'Lateral: 8.81 E'Medial: 6.96 E/E' Med: 12.20 E/E' Lat: 9.70 PHT: 47.00 MVA PHT: 4.68 Decel Warrick: 5.34 Aortic Valve AoV Pk Monico: 1.40 AoV Mn Monico: 0.91 AoV VTI: 0.25 AoV Pk Grad: 8.00 Aov Mn Grad: 4.00 MODESTO Cont.VTI: 4.03 LVOT LVOT Pk Monico: 1.19 LVOT Mn Monico: 0.76 LVOT VTI: 0.24 LVOT Pk Grad: 6.00 LVOT Mn Grad: 3.00 LVOT Diam: 2.30 LVOT Area: 4.15 Diastolic Function MV Pk E: 0.85 MV Pk A: 1.18 E/A: 0.70 E'Medial: 6.96 E/E' Med: 12.20 E' Laterial: 8.81 E/E' Lat: 9.70 Right Ventricle TAPSE (mm): 31.00 TVS' Monico: 18.00 Tricuspid Valve TR Pk Monico: 1.95 TR Pk Grad: 15.00 RA Press: 3.00 RVSP: 18.00 Great Vessels Aorta Ao Root-2D: 3.50 2.0-3.7 cm Ao Asc: 3.50 2.1-3.4 cm Pulmonary Valve PV Pk Monico: 1.32 Peak PV Grad: 7.00 Updated in Other Vendor System with Status of Final Tej Isaac MD electronically signed on 07/07/2024 2:38:40 PM with status of Final
[2024-07-07 18:55] LABS: Anion Gap 17 (12-20); Blood Urea Nitrogen 25 mg/dL (9-16); Calcium 9.1 mg/dL (8.4-10.2); Carbon Dioxide 30 mmol/L (22-29); Chloride 103 mmol/L (96-108); Creatinine Clr Calc Pharmacy 64.1; Estimated Glomerular Filt Rate 52; Glucose Random 174 mg/dL (60-115); Potassium 4.2 mmol/L (3.3-5.1); Sodium 146 mmol/L (135-145)
[2024-07-07 20:35] LABS: Glucose, Whole Blood 164 mg/dL (60-115)
[2024-07-07] MEDS: OLANZapine 10 MG TABLET PO (20:40)
[2024-07-08] VITALS (31 sets, daily range): BP systolic 99–144; BP diastolic 49–77; PULSE 72–103; RESP 10–21; TEMP 36.3–37.4; O2SAT 87–97
[2024-07-08 04:56] LABS: VBG Base Excess 19.8 mmol/L; VBG HCO3 45 mmol/L (22-26); VBG pCO2 57 mmHg; VBG pO2 54 mmHg
[2024-07-08 04:58] LABS: Venous Blood Gas Refer to POC result
[2024-07-08 05:00] LABS: MANUAL DIFF FLAG NO
[2024-07-08 05:07] LABS: Basophils Percent Auto 0.1 % (0-2); Hematocrit 28.6 % (42.0-52.0); Hemoglobin 8.8 g/dl (14.0-18.0); Imm Gran Abs Auto 0.08 X10*3/uL (0.00-0.03); Imm Gran Pct Auto 0.9 % (0.0-0.4); Lymphocytes Percent Auto 11.6 % (20-40); Mean Corpuscular HGB Conc 30.8 g/dl (31.0-36.0); Mean Corpuscular Hemoglobin 29.6 pg (27.0-33.0); Mean Corpuscular Volume 96.3 fL (80.0-98.0); Mean Platelet Volume 9.6 fL (9.4-12.4); Monocytes Absolute Auto 0.7 X10*3/uL (0.1-1.2); Monocytes Percent Auto 7.7 % (2-11); Neutrophils Absolute Auto 7.1 x10*3/uL (2.0-8.3); Neutrophils Percent Auto 79.7 % (45-73); Platelet Count 171 X10*3/uL (160-400); Red Blood Count 2.97 X10*6/uL (4.60-5.80); Red Cell Distribution Width 15.4 % (11.0-16.0); White Blood Count 8.9 X10*3/uL (4.8-10.8)
[2024-07-08 05:32] LABS: Alanine Aminotransferase < 6 U/L (0-40); Albumin Level 3.8 g/dL (3.5-5.0); Alkaline Phosphatase 62 U/L (39-117); Anion Gap 13 (12-20); Aspartate Amino Transferase 15 U/L (5-37); Bilirubin Total 0.3 mg/dL (0.0-1.0); Blood Urea Nitrogen 29 mg/dL (9-16); Calcium 8.9 mg/dL (8.4-10.2); Carbon Dioxide 37 mmol/L (22-29); Chloride 101 mmol/L (96-108); Creatinine Clr Calc Pharmacy 62.7; Estimated Glomerular Filt Rate 51; Glucose Random 126 mg/dL (60-115); Magnesium 1.9 mg/dL (1.6-2.6); Phosphorus 3.9 mg/dL (2.7-4.5); Potassium 3.5 mmol/L (3.3-5.1); Sodium 147 mmol/L (135-145)
[2024-07-08] MEDS: Albumin Human 25 % 100 ML 120 ML IV (05:45)
[2024-07-08 07:51] LABS: Glucose, Whole Blood 107 mg/dL (60-115)
[2024-07-08] MEDS: Albuterol/Iprat 2.5/0.5MG 3 ML AMPUL.NEB INHALE ×4 (07:54→20:40)
[2024-07-08] MEDS: Fluticasone/Vilanterol 100/25 BLST.W.DEV 1 PUFF INHALE (08:00)
[2024-07-08] MEDS: clonazePAM 0.5 MG TABLET PO ×2 (08:07→20:25)
[2024-07-08] MEDS: Bumetanide 1 MG/4 ML VIAL IVPUSH ×2 (08:07→17:48)
[2024-07-08] MEDS: Ziprasidone 80 MG CAPSULE PO (08:07)
[2024-07-08] MEDS: 0.9 % Sodium Chloride Flush 3 ML SYRINGE IVFLUSH ×3 (08:07→23:57)
[2024-07-08] MEDS: Apixaban 5 MG TABLET PO ×2 (08:07→20:25)
[2024-07-08] MEDS: Acetaminophen 325 MG TABLET 650 MG PO (08:33)
[2024-07-08] MEDS: acetaZOLAMIDE sodium 500 MG VIAL 375 MG IVPUSH ×2 (08:34→20:30)
--- NOTE | 2024-07-08 10:27 | P.PNCC_ITS ---
Subjective Subjective Date of Service: 07/08/24 Interval History: 69-year-old gentleman with underlying AFib on Eliquis, COPD on 4 L O2, systolic heart failure, CKD stage 3, diabetes mellitus admitted on 07/06/2024 with worsening dyspnea and hypoxia requiring high-flow nasal cannula support. Patient also noted to have significant bilateral lower extremity edema. He was started on empiric antibiotics, however his respiratory status continued to deteriorate requiring transfer to intensive care unit for close monitoring. Patient started on diuresis with improvement in his FiO2 requirements. No events overnight. Critical Care Time (minutes): 0 Physical Exam 2 Vital Signs: Vital Signs: Last Vital Signs Temp 97.3 F 07/08/24 08:00 Pulse 97 07/08/24 10:00 Resp 15 07/08/24 10:00 BP 131/53 L 07/08/24 10:00 Pulse Ox 87 L 07/08/24 10:00 O2 Del Method High Flow Nasal C annula 07/08/24 10:00 O2 Flow Rate 40 07/08/24 10:00 FiO2 40 07/08/24 10:00 Oxygen Flow Rate 4 07/06/24 03:58 BMI result Body Mass Index 36.3 Const: General: no acute distress, awake and confusion Nutritional Appearance: obese and Edematous Orientation/consciousness: confusion Eyes: Sclerae: sclerae normal EOM: EOMs intact bilaterally Neck: Neck: Yes no lymphadenopathy, Yes trachea midline and Yes supple Resp: Effort & Inspection: normal respiratory effort and no respiratory distress Auscultation: crackles (Bilateral) Cardio: Rate: regular rate Rhythm: regular rhythm Heart sounds: no gallops, no murmurs and no rubs GI: Palpation (GI): Soft to palpation and Other GI palpation findings present ( Nontender) Auscultation: normal bowel sounds Neuro: General: confusion Extrem: General: No clubbing, No cyanosis and Yes edema (2+ bilateral) Objective Data Labs 07/08/24 04:49 07/08/24 04:49 Labs: Laboratory Results - last 24 hr 07/07/24 07/07/24 07/07/24 10:40 11:33 12:20 WBC RBC Hgb Hct MCV MCH MCHC RDW Plt Count MPV Immature Gran % (Auto) Neut % (Auto) Lymph % (Auto) [place] % (Auto) Eos % (Auto) Baso % (Auto) Lymph # (Auto) [place] # (Auto) Eos # (Auto) Baso # (Auto) Abs Immat Gran (auto) Absolute Neuts (auto) Absolute Nucleated RBC Nucleated RBC % (auto) VBG pH 7.42 VBG pCO2 54 VBG pO2 42 VBG HCO3 35 H VBG O2 Saturation 74.0 VBG Base Excess 9.8 Sodium Potassium Chloride Carbon Dioxide Anion Gap BUN Creatinine Estim Creat Clear Calc Estimated GFR POC Glucose 186 H Random Glucose Calcium Phosphorus Magnesium Total Bilirubin AST ALT Alkaline Phosphatase Total Protein Albumin COVID-19 ([facility]) Negative COVID-19 Clin Com See Note 07/07/24 07/07/24 07/07/24 16:34 18:11 20:31 WBC RBC Hgb Hct MCV MCH MCHC RDW Plt Count MPV Immature Gran % (Auto) Neut % (Auto) Lymph % (Auto) [place] % (Auto) Eos % (Auto) Baso % (Auto) Lymph # (Auto) [place] # (Auto) Eos # (Auto) Baso # (Auto) Abs Immat Gran (auto) Absolute Neuts (auto) Absolute Nucleated RBC Nucleated RBC % (auto) VBG pH VBG pCO2 VBG pO2 VBG HCO3 VBG O2 Saturation VBG Base Excess Sodium 146 H Potassium 4.2 Chloride 103 Carbon Dioxide 30 H Anion Gap 17 BUN 25 H Creatinine 1.36 Estim Creat Clear Calc 64.1 Estimated GFR 52 POC Glucose 183 H 164 H Random Glucose 174 H Calcium 9.1 Phosphorus Magnesium Total Bilirubin AST ALT Alkaline Phosphatase Total Protein Albumin COVID-19 ([facility]) COVID-19 Clin Com 07/08/24 07/08/24 07/08/24 04:45 04:49 07:40 WBC 8.9 RBC 2.97 L Hgb 8.8 L Hct 28.6 L MCV 96.3 MCH 29.6 MCHC 30.8 L RDW 15.4 Plt Count 171 MPV 9.6 Immature Gran % (Auto) 0.9 H Neut % (Auto) 79.7 H Lymph % (Auto) 11.6 L [place] % (Auto) 7.7 Eos % (Auto) 0.0 Baso % (Auto) 0.1 Lymph # (Auto) 1.0 L [place] # (Auto) 0.7 Eos # (Auto) 0.0 Baso # (Auto) 0.0 Abs Immat Gran (auto) 0.08 H Absolute Neuts (auto) 7.1 Absolute Nucleated RBC 0.000 Nucleated RBC % (auto) 0.0 VBG pH 7.50 H VBG pCO2 57 VBG pO2 54 VBG HCO3 45 H VBG O2 Saturation 86.0 VBG Base Excess 19.8 Sodium 147 H Potassium 3.5 Chloride 101 Carbon Dioxide 37 H Anion Gap 13 BUN 29 H Creatinine 1.39 Estim Creat Clear Calc 62.7 Estimated GFR 51 POC Glucose 107 Random Glucose 126 H Calcium 8.9 Phosphorus 3.9 Magnesium 1.9 Total Bilirubin 0.3 AST 15 ALT < 6 Alkaline Phosphatase 62 Total Protein 6.0 L Albumin 3.8 COVID-19 ([facility]) COVID-19 Clin Com Microbiology Microbiology Results: Microbiology 07/06/24 08:59 Blood - Venous Blood Culture - Preliminary No growth after 24 hours. 07/06/24 08:54 Blood - Venous Blood Culture - Preliminary No growth after 24 hours. Progress Note: A&P Assessment and plan (1) Heart failure with reduced ejection fraction: Status: Acute (2) Paroxysmal A-fib: Status: Acute (3) CKD stage 3 due to type 1 diabetes mellitus: Status: Acute (4) COPD (chronic obstructive pulmonary disease): Status: Acute (5) Acute on chronic hypoxic respiratory failure: Status: Acute Plan Assessment: 69-year-old gentleman with underlying systolic heart failure AFib, COPD on 4 L of O2 and CKD admitted with dyspnea and worsening hypoxia Plan: Neuro: No acute issues. Cardiac: Exacerbation of underlying chronic systolic congestive heart failure. Continue with empiric diuresis. Underlying AFib. Pulmonary: Acute on chronic hypoxic respiratory failure, likely secondary to exacerbation of underlying congestive heart failure. Continue to titrate off supplemental oxygen as tolerated. Underlying oxygen [address] angio chest to rule out pulmonary embolism Renal: JESSIKA, likely secondary to congestive heart failure exacerbation, improving, non oliguric. Continue to monitor renal indices and urine output. Endo: No acute issues. GI: No acute issues. ID: No acute issues Heme/Onc: No acute issues. Psych: No acute issues. Miscellaneous: No acute issues. Prophylaxis: Apixaban Diet: Cardiac Quality Stroke Does the patient have a stroke diagnosis?: No VTE Prior VTE?: No VTE Risk Level:: Medical - moderate - high VTE Device Contraindication: Treatment Not Indicated VTE Drug Contraindication: N/A - Med Ordered
[2024-07-08] MEDS: iohexoL 350 MG/ML 100 ML INFUS..BTL IV (11:27)
[2024-07-08 12:17] LABS: Glucose, Whole Blood 135 mg/dL (60-115)
[2024-07-08 16:56] LABS: Glucose, Whole Blood 91 mg/dL (60-115)
[2024-07-08 18:55] LABS: Anion Gap 11 (12-20); Blood Urea Nitrogen 28 mg/dL (9-16); Carbon Dioxide 40 mmol/L (22-29); Chloride 98 mmol/L (96-108); Creatinine Clr Calc Pharmacy 69.7; Estimated Glomerular Filt Rate 57; Glucose Random 112 mg/dL (60-115); Potassium 3.3 mmol/L (3.3-5.1); Sodium 146 mmol/L (135-145)
[2024-07-08 20:18] LABS: Glucose, Whole Blood 66 mg/dL (60-115)
[2024-07-08] MEDS: Potassium Chloride Packet 20 MEQ PACKET 40 MEQ PO (20:19)
[2024-07-08] MEDS: OLANZapine 10 MG TABLET PO (20:24)
[2024-07-08 21:01] LABS: Glucose, Whole Blood 97 mg/dL (60-115)
--- NOTE | 2024-07-08 21:03 | PC.NURSE ---
Patient's FSBS at 2014 was 66. Patient awake and alert, was able to drink 120ml of orange juice, eat half an an applesauce, and one ice cream cup. Repeat FSBS at 2056 was 97.
[2024-07-09] VITALS (28 sets, daily range): BP systolic 104–159; BP diastolic 63–90; PULSE 87–118; RESP 12–19; TEMP 36.4–37.5; O2SAT 86–94
[2024-07-09 01:01] LABS: Glucose, Whole Blood 113 mg/dL (60-115)
[2024-07-09 04:42] LABS: VBG Base Excess 18.4 mmol/L; VBG HCO3 45 mmol/L (22-26); VBG pCO2 67 mmHg; VBG pH 7.44 (7.32-7.43); VBG pO2 25 mmHg
[2024-07-09 04:43] LABS: Venous Blood Gas Refer to POC result
[2024-07-09 04:57] LABS: MANUAL DIFF FLAG NO
[2024-07-09 04:59] LABS: Basophils Percent Auto 0.2 % (0-2); Eosinophils Percent Auto 0.1 % (0-4); Hematocrit 34.4 % (42.0-52.0); Hemoglobin 10.4 g/dl (14.0-18.0); Imm Gran Abs Auto 0.06 X10*3/uL (0.00-0.03); Imm Gran Pct Auto 0.6 % (0.0-0.4); Lymphocytes Percent Auto 18.6 % (20-40); Mean Corpuscular HGB Conc 30.2 g/dl (31.0-36.0); Mean Corpuscular Volume 99.1 fL (80.0-98.0); Mean Platelet Volume 9.7 fL (9.4-12.4); Monocytes Absolute Auto 0.7 X10*3/uL (0.1-1.2); Monocytes Percent Auto 6.5 % (2-11); Neutrophils Absolute Auto 7.9 x10*3/uL (2.0-8.3); Platelet Count 198 X10*3/uL (160-400); Red Blood Count 3.47 X10*6/uL (4.60-5.80); Red Cell Distribution Width 15.8 % (11.0-16.0); White Blood Count 10.7 X10*3/uL (4.8-10.8)
[2024-07-09 05:14] LABS: Albumin Level 4.3 g/dL (3.5-5.0); Anion Gap 15 (12-20); Blood Urea Nitrogen 27 mg/dL (9-16); Calcium 9.5 mg/dL (8.4-10.2); Carbon Dioxide 38 mmol/L (22-29); Chloride 99 mmol/L (96-108); Creatinine Clr Calc Pharmacy 63.6; Estimated Glomerular Filt Rate 51; Glucose Random 94 mg/dL (60-115); Phosphorus 3.6 mg/dL (2.7-4.5); Potassium 3.9 mmol/L (3.3-5.1); Sodium 148 mmol/L (135-145)
[2024-07-09 07:28] LABS: Glucose, Whole Blood 88 mg/dL (60-115)
[2024-07-09] MEDS: Albuterol/Iprat 2.5/0.5MG 3 ML AMPUL.NEB INHALE ×4 (07:40→19:43)
[2024-07-09] MEDS: Fluticasone/Vilanterol 100/25 BLST.W.DEV 1 PUFF INHALE (08:11)
[2024-07-09] MEDS: acetaZOLAMIDE sodium 500 MG VIAL 375 MG IVPUSH ×2 (08:25→20:04)
[2024-07-09] MEDS: Apixaban 5 MG TABLET PO ×2 (08:26→20:08)
[2024-07-09] MEDS: clonazePAM 0.5 MG TABLET PO ×2 (08:26→20:08)
[2024-07-09] MEDS: 0.9 % Sodium Chloride Flush 3 ML SYRINGE IVFLUSH ×3 (08:26→20:05)
[2024-07-09] MEDS: Bumetanide 1 MG/4 ML VIAL IVPUSH ×2 (08:26→17:23)
[2024-07-09] MEDS: Ziprasidone 80 MG CAPSULE PO (08:26)
[2024-07-09] MEDS: Potassium Chloride Packet 20 MEQ PACKET 60 MEQ PO (10:22)
--- NOTE | 2024-07-09 10:54 | PM.CCPN ---
Subjective Subjective Date of Service: 07/09/24 Interval History: 69-year-old gentleman with underlying AFib on Eliquis, COPD on 4 L O2, systolic heart failure, CKD stage 3, diabetes mellitus admitted on 07/06/2024 with worsening dyspnea and hypoxia requiring high-flow nasal cannula support. Patient also noted to have significant bilateral lower extremity edema. He was started on empiric antibiotics, however his respiratory status continued to deteriorate requiring transfer to intensive care unit for close monitoring. Patient continues on diuresis with improvement in his FiO2 requirements. CT angio chest with no evidence of pulmonary emboli. No events overnight. Critical Care Time (minutes): 0 Physical Exam Vital Signs: Vital Signs: Last Vital Signs Temp 98.1 F 07/09/24 08:00 Pulse 111 H 07/09/24 10:00 Resp 16 07/09/24 10:00 BP 136/77 07/09/24 10:00 Pulse Ox 88 L 07/09/24 10:00 O2 Del Method Oxymask 07/09/24 10:00 O2 Flow Rate 11 07/09/24 10:00 FiO2 40 07/08/24 10:00 Oxygen Flow Rate 4 07/06/24 03:58 BMI result Body Mass Index 36.3 Const: General: no acute distress, alert and awake Eyes: Sclerae: sclerae normal EOM: EOMs intact bilaterally Neck: Neck: Yes no lymphadenopathy, Yes trachea midline and Yes supple Resp: Effort & Inspection: normal respiratory effort and no respiratory distress Auscultation: clear to auscultation bilaterally Cardio: Rate: tachycardic Rhythm: abnormal rhythm irregularly irregular Heart sounds: no gallops, no murmurs and no rubs GI: Palpation (GI): Soft to palpation and Other GI palpation findings present ( Nontender) Auscultation: normal bowel sounds Extrem: General: No clubbing, No cyanosis and Yes edema (1+ bilateral) Objective Data Labs 07/09/24 04:34 07/09/24 04:34 Labs: Laboratory Results - last 24 hr 07/08/24 07/08/24 07/08/24 12:13 16:53 18:20 WBC RBC Hgb Hct MCV MCH MCHC RDW Plt Count MPV Immature Gran % (Auto) Neut % (Auto) Lymph % (Auto) [place] % (Auto) Eos % (Auto) Baso % (Auto) Lymph # (Auto) [place] # (Auto) Eos # (Auto) Baso # (Auto) Abs Immat Gran (auto) Absolute Neuts (auto) Absolute Nucleated RBC Nucleated RBC % (auto) VBG pH VBG pCO2 VBG pO2 VBG HCO3 VBG O2 Saturation VBG Base Excess Sodium 146 H Potassium 3.3 Chloride 98 Carbon Dioxide 40 H* Anion Gap 11 L BUN 28 H Creatinine 1.25 Estim Creat Clear Calc 69.7 Estimated GFR 57 POC Glucose 135 H 91 Random Glucose 112 Calcium 9.0 Phosphorus Magnesium Albumin 07/08/24 07/08/24 07/09/24 20:15 20:57 00:58 WBC RBC Hgb Hct MCV MCH MCHC RDW Plt Count MPV Immature Gran % (Auto) Neut % (Auto) Lymph % (Auto) [place] % (Auto) Eos % (Auto) Baso % (Auto) Lymph # (Auto) [place] # (Auto) Eos # (Auto) Baso # (Auto) Abs Immat Gran (auto) Absolute Neuts (auto) Absolute Nucleated RBC Nucleated RBC % (auto) VBG pH VBG pCO2 VBG pO2 VBG HCO3 VBG O2 Saturation VBG Base Excess Sodium Potassium Chloride Carbon Dioxide Anion Gap BUN Creatinine Estim Creat Clear Calc Estimated GFR POC Glucose 66 97 113 Random Glucose Calcium Phosphorus Magnesium Albumin 07/09/24 07/09/24 07/09/24 04:30 04:34 07:23 WBC 10.7 RBC 3.47 L Hgb 10.4 L Hct 34.4 L D MCV 99.1 H MCH 30.0 MCHC 30.2 L RDW 15.8 Plt Count 198 MPV 9.7 Immature Gran % (Auto) 0.6 H Neut % (Auto) 74.0 H Lymph % (Auto) 18.6 L [place] % (Auto) 6.5 Eos % (Auto) 0.1 Baso % (Auto) 0.2 Lymph # (Auto) 2.0 [place] # (Auto) 0.7 Eos # (Auto) 0.0 Baso # (Auto) 0.0 Abs Immat Gran (auto) 0.06 H Absolute Neuts (auto) 7.9 Absolute Nucleated RBC 0.000 Nucleated RBC % (auto) 0.0 VBG pH 7.44 H VBG pCO2 67 VBG pO2 25 VBG HCO3 45 H VBG O2 Saturation 30.0 VBG Base Excess 18.4 Sodium 148 H Potassium 3.9 Chloride 99 Carbon Dioxide 38 H Anion Gap 15 BUN 27 H Creatinine 1.37 Estim Creat Clear Calc 63.6 Estimated GFR 51 POC Glucose 88 Random Glucose 94 Calcium 9.5 Phosphorus 3.6 Magnesium 2.0 Albumin 4.3 Microbiology Microbiology Results: Microbiology 07/06/24 08:59 Blood - Venous Blood Culture - Preliminary No growth after 48 hours. 07/06/24 08:54 Blood - Venous Blood Culture - Preliminary No growth after 48 hours. Progress Note: A&P Assessment and plan (1) Heart failure with reduced ejection fraction: Status: Acute (2) Paroxysmal A-fib: Status: Acute (3) CKD stage 3 due to type 1 diabetes mellitus: Status: Acute (4) COPD (chronic obstructive pulmonary disease): Status: Acute (5) Acute on chronic hypoxic respiratory failure: Status: Acute Plan Assessment: 69-year-old gentleman with underlying systolic heart failure AFib, COPD on 4 L of O2 and CKD admitted with dyspnea and worsening hypoxia Plan: Neuro: No acute issues. Cardiac: Exacerbation of underlying chronic systolic congestive heart failure. Continue with diuresis. Underlying AFib. Pulmonary: Acute on chronic hypoxic respiratory failure, likely secondary to exacerbation of underlying congestive heart failure. Continue to titrate off supplemental oxygen as tolerated. Underlying oxygen [address] angio chest to rule out pulmonary embolism Renal: JESSIKA, resolved. Continue to monitor renal indices and urine output. Endo: No acute issues. GI: No acute issues. ID: No acute issues Heme/Onc: No acute issues. Psych: No acute issues. Miscellaneous: No acute issues. Prophylaxis: Apixaban Diet: Diabetic Quality Stroke Does the patient have a stroke diagnosis?: No VTE Prior VTE?: No VTE Risk Level:: Medical - moderate - high VTE Device Contraindication: Treatment Not Indicated VTE Drug Contraindication: N/A - Med Ordered
[2024-07-09] MEDS: LORazepam 2 MG/ML VIAL 0.5 MG IVPUSH (11:47)
[2024-07-09 11:49] LABS: Glucose, Whole Blood 148 mg/dL (60-115)
[2024-07-09] MEDS: Acetaminophen 325 MG TABLET 650 MG PO (15:01)
[2024-07-09 16:15] LABS: Glucose, Whole Blood 173 mg/dL (60-115)
[2024-07-09 18:27] LABS: Anion Gap 13 (12-20); Blood Urea Nitrogen 30 mg/dL (9-16); Calcium 9.2 mg/dL (8.4-10.2); Carbon Dioxide 35 mmol/L (22-29); Chloride 101 mmol/L (96-108); Creatinine Clr Calc Pharmacy 56.2; Estimated Glomerular Filt Rate 45; Glucose Random 154 mg/dL (60-115); Potassium 4.4 mmol/L (3.3-5.1); Sodium 145 mmol/L (135-145)
[2024-07-09] MEDS: OLANZapine 10 MG TABLET PO (20:08)
[2024-07-09 20:27] LABS: Glucose, Whole Blood 128 mg/dL (60-115)
[2024-07-10] VITALS (30 sets, daily range): BP systolic 118–168; BP diastolic 72–106; PULSE 89–123; RESP 15–21; TEMP 36.6–37; O2SAT 88–96
[2024-07-10 02:38] LABS: Glucose, Whole Blood 129 mg/dL (60-115)
[2024-07-10] MEDS: LORazepam 2 MG/ML VIAL 0.5 MG IVPUSH (02:49)
[2024-07-10 04:29] LABS: VBG Base Excess 12.9 mmol/L; VBG HCO3 36 mmol/L (22-26); VBG pCO2 43 mmHg; VBG pH 7.53 (7.32-7.43); VBG pO2 70 mmHg
[2024-07-10 04:33] LABS: Venous Blood Gas Refer to POC result
[2024-07-10 05:16] LABS: Alanine Aminotransferase 11 U/L (0-40); Albumin Level 4.4 g/dL (3.5-5.0); Alkaline Phosphatase 86 U/L (39-117); Anion Gap 18 (12-20); Aspartate Amino Transferase 29 U/L (5-37); Bilirubin Total 0.8 mg/dL (0.0-1.0); Blood Urea Nitrogen 32 mg/dL (9-16); Calcium 9.8 mg/dL (8.4-10.2); Carbon Dioxide 31 mmol/L (22-29); Chloride 101 mmol/L (96-108); Creatinine Clr Calc Pharmacy 58.5; Estimated Glomerular Filt Rate 47; Glucose Random 134 mg/dL (60-115); Magnesium 2.2 mg/dL (1.6-2.6); Phosphorus 3.4 mg/dL (2.7-4.5); Potassium 4.8 mmol/L (3.3-5.1); Sodium 145 mmol/L (135-145); Total Protein 7.7 g/dL (6.5-8.0)
[2024-07-10 07:07] LABS: Glucose, Whole Blood 148 mg/dL (60-115)
[2024-07-10] MEDS: Albuterol/Iprat 2.5/0.5MG 3 ML AMPUL.NEB INHALE ×4 (07:59→19:57)
[2024-07-10] MEDS: 0.9 % Sodium Chloride Flush 3 ML SYRINGE IVFLUSH ×2 (08:55→17:00)
--- NOTE | 2024-07-10 08:55 | P.PNCC_ITS ---
Subjective Subjective Date of Service: 07/10/24 Critical Care Time (minutes): 60 Physical Exam 2 Vital Signs: Vital Signs: Last Vital Signs Temp 98.6 F 07/10/24 08:00 Pulse 119 H 07/10/24 08:03 Resp 18 07/10/24 08:03 BP 156/96 H 07/10/24 08:00 Pulse Ox 91 L 07/10/24 08:00 O2 Del Method Oxymask 07/10/24 08:00 O2 Flow Rate 11 07/10/24 08:00 FiO2 40 07/08/24 10:00 Oxygen Flow Rate 4 07/06/24 03:58 BMI result Body Mass Index 36.3 Const: General: cooperative, healthy appearing, comfortable, no acute distress, well developed, alert, awake and Physically active O rientation/consciousness: oriented to person HEENT: Head: Yes normal to inspection, Yes normocephalic and Yes atraumatic Eyes: General: appearance normal, both eyes and all related structures Neck: Neck: Yes normal visual inspection, Yes full ROM, Yes no meningeal signs, Yes trachea midline and Yes supple Chest: Chest palpation & inspection: normal inspection of the chest Resp: Other: some appreciable rhonchi; no appreciable rales, wheezing Effort & Inspection: normal respiratory effort Cardio: Rate: tachycardic Rhythm: abnormal rhythm GI: Inspection: Yes normal to inspection, No Abdominal wall edema and No distended Palpation (GI): Soft to palpation, not firm, nontender, no guarding and not rigid Skin: General skin exam: no rashes or lesions noted Neuro: General: oriented to person, tone normal, moves all extremities, no meningeal signs and no focal motor deficits Extrem: Other: appreciable 1+ pitting edema to bilateral shins General: Yes normal to inspection, Yes full ROM and Yes capillary refill normal Psych: Appearance: grossly normal Objective Data Labs 07/09/24 04:34 07/10/24 04:17 Labs: Laboratory Results - last 24 hr 07/09/24 07/09/24 07/09/24 11:39 16:11 18:09 VBG pH VBG pCO2 VBG pO2 VBG HCO3 VBG O2 Saturation VBG Base Excess Sodium 145 Potassium 4.4 Chloride 101 Carbon Dioxide 35 H Anion Gap 13 BUN 30 H Creatinine 1.55 H Estim Creat Clear Calc 56.2 Estimated GFR 45 POC Glucose 148 H 173 H Random Glucose 154 H Calcium 9.2 Phosphorus Magnesium Total Bilirubin AST ALT Alkaline Phosphatase Total Protein Albumin 07/09/24 07/10/24 07/10/24 20:23 02:34 04:17 VBG pH VBG pCO2 VBG pO2 VBG HCO3 VBG O2 Saturation VBG Base Excess Sodium 145 Potassium 4.8 Chloride 101 Carbon Dioxide 31 H Anion Gap 18 BUN 32 H Creatinine 1.49 H Estim Creat Clear Calc 58.5 Estimated GFR 47 POC Glucose 128 H 129 H Random Glucose 134 H Calcium 9.8 D Phosphorus 3.4 Magnesium 2.2 Total Bilirubin 0.8 AST 29 ALT 11 Alkaline Phosphatase 86 Total Protein 7.7 Albumin 4.4 07/10/24 07/10/24 04:18 07:04 VBG pH 7.53 H VBG pCO2 43 VBG pO2 70 VBG HCO3 36 H VBG O2 Saturation 95.0 VBG Base Excess 12.9 Sodium Potassium Chloride Carbon Dioxide Anion Gap BUN Creatinine Estim Creat Clear Calc Estimated GFR POC Glucose 148 H Random Glucose Calcium Phosphorus Magnesium Total Bilirubin AST ALT Alkaline Phosphatase Total Protein Albumin Microbiology Microbiology Results: Microbiology 07/06/24 08:59 Blood - Venous Blood Culture - Preliminary No growth after 48 hours. 07/06/24 08:54 Blood - Venous Blood Culture - Preliminary No growth after 48 hours. Progress Note: A&P Assessment and plan (1) Acute on chronic hypoxic respiratory failure: Status: Acute (2) Heart failure with reduced ejection fraction: Status: Acute (3) COPD (chronic obstructive pulmonary disease): Status: Acute Plan Patient is a 69 Y M w/ diabetes mellitus, heart failure, c/b atrial fibrillation on apixaban, CKD, and COPD on 4L NC baseline, presenting initially on 07/06 w/ dyspnea, found to be hypoxic respiratory failure, placed on HFNC, thought to be d/t CHF exacerbation N: no acute issues CV: heart failure c/f CHF exacerbation, diuresis as tolerated; atrial fibrillation on apixaban, metoprolol R: acute on chronic hypoxic respiratory failure, likely d/t CHF exacerbation, on nasal cannula vs oxymask, wean as tolerated GI: no acute issues; diabetic/cardiac diet : JESSIKA on CKD, improving; CHF exacerbation, diuresis as tolerated; to monitor renal indices/electrolytes closely H: no acute issues; atrial fibrillation on apixaban ID: no acute issues E: diabetes mellitus; to monitor hypo-/hyper-glycemia P: no acute issues Quality Stroke Does the patient have a stroke diagnosis?: No VTE Prior VTE?: No VTE Risk Level:: Medical - moderate - high VTE Device Contraindication: N/A - Device Ordered VTE Drug Contraindication: N/A - Med Ordered
[2024-07-10] MEDS: acetaZOLAMIDE sodium 500 MG VIAL 375 MG IVPUSH ×2 (09:20→21:03)
[2024-07-10] MEDS: Ziprasidone 80 MG CAPSULE PO (09:21)
[2024-07-10] MEDS: Bumetanide 1 MG/4 ML VIAL IVPUSH ×2 (09:21→17:35)
[2024-07-10] MEDS: Apixaban 5 MG TABLET PO (09:21)
[2024-07-10] MEDS: Metoprolol Tartrate 25 MG TABLET PO (09:21)
[2024-07-10] MEDS: amLODIPine Besylate 5 MG TABLET PO (09:23)
[2024-07-10] MEDS: clonazePAM 0.5 MG TABLET PO (09:23)
[2024-07-10] MEDS: Metoprolol Tartrate 5 MG/5 ML VIAL IVPUSH (09:45)
[2024-07-10 11:23] LABS: Glucose, Whole Blood 178 mg/dL (60-115)
[2024-07-10] MEDS: Insulin Lispro 100 UNIT/ML 3 ML VIAL SUBCUT ×2 (11:40→17:35)
--- NOTE | 2024-07-10 13:43 | MHC.CM.PN ---
Pt continues on high flow O2 and diruesis: LTC resident of [facility]: clinical updates sent in anticipation of a return. BLS transport: CM to follow
[2024-07-10 16:33] LABS: Glucose, Whole Blood 155 mg/dL (60-115)
[2024-07-10 18:58] LABS: Ammonia 73 umol/L (13-55)
[2024-07-10 19:03] LABS: Anion Gap 18 (12-20); Blood Urea Nitrogen 36 mg/dL (9-16); Carbon Dioxide 30 mmol/L (22-29); Chloride 103 mmol/L (96-108); Creatinine Clr Calc Pharmacy 55.9; Estimated Glomerular Filt Rate 44; Glucose Random 152 mg/dL (60-115); Magnesium 2.3 mg/dL (1.6-2.6); Phosphorus 3.6 mg/dL (2.7-4.5); Potassium 4.3 mmol/L (3.3-5.1); Sodium 147 mmol/L (135-145)
[2024-07-10 19:29] LABS: TSH reflex Free T4 1.05 uIU/mL (0.32-4.0)
[2024-07-10] MEDS: Lactulose 320 GM/480 ML SOLUTION 200 GM PR (20:59)
[2024-07-10 21:08] LABS: Glucose, Whole Blood 150 mg/dL (60-115)
[2024-07-11] VITALS (30 sets, daily range): BP systolic 103–148; BP diastolic 46–95; PULSE 95–119; RESP 11–93; TEMP 36.4–37.1; O2SAT 88–99; BMI 34.3
[2024-07-11] MEDS: Metoprolol Tartrate 5 MG/5 ML VIAL IVPUSH (02:25)
[2024-07-11] MEDS: Lactulose 320 GM/480 ML SOLUTION 200 GM PR ×3 (02:32→16:33)
[2024-07-11] MEDS: 0.9 % Sodium Chloride Flush 3 ML SYRINGE IVFLUSH ×4 (02:55→21:11)
[2024-07-11 05:15] LABS: VBG Base Excess 8.4 mmol/L; VBG HCO3 33 mmol/L (22-26); VBG pCO2 47 mmHg; VBG pH 7.45 (7.32-7.43); VBG pO2 74 mmHg
[2024-07-11 05:39] LABS: Venous Blood Gas Refer to POC result
[2024-07-11 05:42] LABS: MANUAL DIFF FLAG NO
[2024-07-11 05:43] LABS: Basophils Percent Auto 0.1 % (0-2); Eosinophils Percent Auto 0.1 % (0-4); Hematocrit 40.8 % (42.0-52.0); Hemoglobin 12.5 g/dl (14.0-18.0); Imm Gran Abs Auto 0.15 X10*3/uL (0.00-0.03); Imm Gran Pct Auto 0.9 % (0.0-0.4); Lymphocytes Absolute Auto 1.2 X10*3/uL (1.2-4.9); Lymphocytes Percent Auto 7.1 % (20-40); Mean Corpuscular HGB Conc 30.6 g/dl (31.0-36.0); Mean Corpuscular Hemoglobin 29.8 pg (27.0-33.0); Mean Corpuscular Volume 97.1 fL (80.0-98.0); Mean Platelet Volume 10.3 fL (9.4-12.4); Monocytes Percent Auto 5.8 % (2-11); Platelet Count 211 X10*3/uL (160-400); Red Cell Distribution Width 15.7 % (11.0-16.0); White Blood Count 16.3 X10*3/uL (4.8-10.8)
[2024-07-11 05:57] LABS: Ammonia 32 umol/L (13-55)
[2024-07-11 06:03] LABS: Alanine Aminotransferase 11 U/L (0-40); Albumin Level 4.4 g/dL (3.5-5.0); Alkaline Phosphatase 92 U/L (39-117); Anion Gap 15 (12-20); Aspartate Amino Transferase 12 U/L (5-37); Bilirubin Total 0.7 mg/dL (0.0-1.0); Blood Urea Nitrogen 43 mg/dL (9-16); Calcium 9.5 mg/dL (8.4-10.2); Carbon Dioxide 31 mmol/L (22-29); Chloride 104 mmol/L (96-108); Creatinine Clr Calc Pharmacy 47.1; Estimated Glomerular Filt Rate 36; Glucose Random 156 mg/dL (60-115); Magnesium 2.3 mg/dL (1.6-2.6); Phosphorus 4.2 mg/dL (2.7-4.5); Potassium 4.1 mmol/L (3.3-5.1); Sodium 146 mmol/L (135-145); Total Protein 7.5 g/dL (6.5-8.0)
[2024-07-11 07:10] LABS: Glucose, Whole Blood 161 mg/dL (60-115)
[2024-07-11] MEDS: Albuterol/Iprat 2.5/0.5MG 3 ML AMPUL.NEB INHALE ×4 (07:30→19:51)
--- NOTE | 2024-07-11 09:24 | PM.CCPN ---
Subjective Subjective Date of Service: 07/11/24 Interval History: persistent encephalopathy; otherwise, no significant overnight events Critical Care Time (minutes): 60 Physical Exam Vital Signs: Vital Signs: Last Vital Signs Temp 97.6 F 07/11/24 08:00 Pulse 102 H 07/11/24 09:00 Resp 18 07/11/24 09:00 BP 135/77 07/11/24 09:00 Pulse Ox 96 07/11/24 09:00 O2 Del Method Oxymask 07/11/24 09:00 O2 Flow Rate 6 07/11/24 09:00 FiO2 40 07/08/24 10:00 Oxygen Flow Rate 4 07/06/24 03:58 BMI result Body Mass Index 34.3 Const: Other: moans, tracks to verbal stimulus, though unable to answer questions appropriately General: comfortable, no acute distress, alert and awake Orientation/consciousness: No patient oriented x3 HEENT: Head: Yes normal to inspection, Yes normocephalic and Yes atraumatic Eyes: General: appearance normal, both eyes and all related structures Neck: Neck: Yes normal visual inspection, Yes full ROM, Yes no meningeal signs, Yes trachea midline and Yes supple Chest: Chest palpation & inspection: normal inspection of the chest Resp: Other: no appreciable rales, rhonchi, wheezing Effort & Inspection: normal respiratory effort Cardio: Rate: regular rate Rhythm: regular rhythm GI: Inspection: Yes normal to inspection, No Abdominal wall edema and No distended Palpation (GI): Soft to palpation, not firm, nontender, no guarding and not rigid Skin: General skin exam: no rashes or lesions noted Neuro: General: No patient oriented x3, tone normal, moves all extremities and no meningeal signs Extrem: Other: appreciable 2+ pitting edema to bilateral shins General: Yes normal to inspection, Yes full ROM and Yes capillary refill normal Psych: Other: unable to assess Objective Data Labs 07/11/24 05:05 07/11/24 05:05 Labs: Laboratory Results - last 24 hr 07/10/24 07/10/24 07/10/24 11:18 16:29 18:35 WBC RBC Hgb Hct MCV MCH MCHC RDW Plt Count MPV Immature Gran % (Auto) Neut % (Auto) Lymph % (Auto) [place] % (Auto) Eos % (Auto) Baso % (Auto) Lymph # (Auto) [place] # (Auto) Eos # (Auto) Baso # (Auto) Abs Immat Gran (auto) Absolute Neuts (auto) Absolute Nucleated RBC Nucleated RBC % (auto) VBG pH VBG pCO2 VBG pO2 VBG HCO3 VBG O2 Saturation VBG Base Excess Sodium 147 H Potassium 4.3 Chloride 103 Carbon Dioxide 30 H Anion Gap 18 BUN 36 H Creatinine 1.56 H Estim Creat Clear Calc 55.9 Estimated GFR 44 POC Glucose 178 H 155 H Random Glucose 152 H Calcium 10.0 Phosphorus 3.6 Magnesium 2.3 Total Bilirubin AST ALT Alkaline Phosphatase Ammonia 73 H Total Protein Albumin TSH 1.05 07/10/24 07/11/24 07/11/24 21:06 05:03 05:05 WBC 16.3 H RBC 4.20 L D Hgb 12.5 L D Hct 40.8 L MCV 97.1 MCH 29.8 MCHC 30.6 L RDW 15.7 Plt Count 211 MPV 10.3 Immature Gran % (Auto) 0.9 H Neut % (Auto) 86.0 H Lymph % (Auto) 7.1 L [place] % (Auto) 5.8 Eos % (Auto) 0.1 Baso % (Auto) 0.1 Lymph # (Auto) 1.2 [place] # (Auto) 1.0 Eos # (Auto) 0.0 Baso # (Auto) 0.0 Abs Immat Gran (auto) 0.15 H Absolute Neuts (auto) 14.0 H Absolute Nucleated RBC 0.000 Nucleated RBC % (auto) 0.0 VBG pH 7.45 H VBG pCO2 47 VBG pO2 74 VBG HCO3 33 H VBG O2 Saturation 96.0 VBG Base Excess 8.4 Sodium 146 H Potassium 4.1 Chloride 104 Carbon Dioxide 31 H Anion Gap 15 BUN 43 H Creatinine 1.85 H Estim Creat Clear Calc 47.1 Estimated GFR 36 POC Glucose 150 H Random Glucose 156 H Calcium 9.5 Phosphorus 4.2 Magnesium 2.3 Total Bilirubin 0.7 AST 12 ALT 11 Alkaline Phosphatase 92 Ammonia 32 Total Protein 7.5 Albumin 4.4 TSH 07/11/24 07:06 WBC RBC Hgb Hct MCV MCH MCHC RDW Plt Count MPV Immature Gran % (Auto) Neut % (Auto) Lymph % (Auto) [place] % (Auto) Eos % (Auto) Baso % (Auto) Lymph # (Auto) [place] # (Auto) Eos # (Auto) Baso # (Auto) Abs Immat Gran (auto) Absolute Neuts (auto) Absolute Nucleated RBC Nucleated RBC % (auto) VBG pH VBG pCO2 VBG pO2 VBG HCO3 VBG O2 Saturation VBG Base Excess Sodium Potassium Chloride Carbon Dioxide Anion Gap BUN Creatinine Estim Creat Clear Calc Estimated GFR POC Glucose 161 H Random Glucose Calcium Phosphorus Magnesium Total Bilirubin AST ALT Alkaline Phosphatase Ammonia Total Protein Albumin TSH Microbiology Microbiology Results: Microbiology 07/06/24 08:59 Blood - Venous Blood Culture - Preliminary No growth after 48 hours. 07/06/24 08:54 Blood - Venous Blood Culture - Preliminary No growth after 48 hours. Progress Note: A&P Assessment and plan (1) Acute on chronic hypoxic respiratory failure: Status: Acute (2) Heart failure with reduced ejection fraction: Status: Acute (3) COPD (chronic obstructive pulmonary disease): Status: Acute Plan Patient is a 69 Y M w/ diabetes mellitus, heart failure, c/b atrial fibrillation on apixaban, CKD, and COPD on 4L NC baseline, presenting initially on 07/06 w/ dyspnea, found to be hypoxic respiratory failure, placed on HFNC, thought to be d/t CHF exacerbation N: no acute issues CV: heart failure c/f CHF exacerbation, diuresis as tolerated; atrial fibrillation on apixaban, metoprolol when tolerating PO R: acute on chronic hypoxic respiratory failure, likely d/t CHF exacerbation, on nasal cannula vs oxymask, wean as tolerated GI: NPO; speech/swallow evaluation : JESSIKA on CKD, improving; CHF exacerbation, diuresis as tolerated; to monitor renal indices/electrolytes closely H: no acute issues; atrial fibrillation on apixaban when tolerating PO; chemical DVT prophylaxis w/ heparin SQ ID: no acute issues E: diabetes mellitus; to monitor hypo-/hyper-glycemia P: no acute issues Quality Stroke Does the patient have a stroke diagnosis?: No VTE Prior VTE?: No VTE Risk Level:: Medical - moderate - high VTE Device Contraindication: N/A - Device Ordered VTE Drug Contraindication: N/A - Med Ordered
[2024-07-11] MEDS: Bumetanide 1 MG/4 ML VIAL IVPUSH ×2 (09:45→16:38)
[2024-07-11] MEDS: acetaZOLAMIDE sodium 500 MG VIAL 375 MG IVPUSH ×2 (09:47→21:11)
[2024-07-11] MEDS: Heparin Sodium,Porcine 5,000 UNIT/ML VIAL 5000 UNIT SUBCUT ×2 (09:52→16:39)
[2024-07-11 10:55] LABS: Glucose, Whole Blood 172 mg/dL (60-115)
--- NOTE | 2024-07-11 10:57 | MHC.SLORD ---
Speech Language Pathology Order Status: Pt lethargic, per RN, encephalopathic and not appropriate for bedside swallow eval at this time. RN to contact LEGISLATIVE ASSISTANT via [employer] secure text or ext [phone] if status changes. Otherwise, LEGISLATIVE ASSISTANT will re-attempt eval tomorrow a.m.
[2024-07-11] MEDS: Insulin Lispro 100 UNIT/ML 3 ML VIAL SUBCUT ×2 (11:01→17:40)
--- NOTE | 2024-07-11 15:22 | HO.WOUND ---
Wound Consult: Initial 69yr old?[place] [facility] - See progress notes and H&P for detailed history.? Wound consult placed for Right Great toe Wound and Old injury to coccyx.? Discussed with direct care nurse - she reports buttock coccyx area is intact and pink remains blanchable and with foam in place no concerns for injury at this time - not assessed by this travel writer today. Right great toe see details below. Right Great Toe Etiology: ??Diabetic wound Measurements: 2.8cm x 0.8cm x 0.2cm Wound Bed: dry back eschar Drainage / Odor: none Edges: ? attached and well defined Laura wound: intact and dry - no swelling or erythema noted No Induration, Fluctuance or Warmth noted Goals of Treatment: ? Betadine to keep dry and stable Recommendations: 1. Turn and Reposition every 2 hours and as needed for patient comfort.? Use pillows or wedges to support off loading positions. 2. Off Load all bony prominences with use of pillows and heel boots if needed.? Apply Preventative foams where needed. ? 3. Monitor for incontinence and moisture control, use barrier creams when needed for prevention and treatment. 4. Provide adequate and supplemental nutrition.? 5. Continue low air loss mattress. 6. When applicable maintain blood glucose levels per Providers order. 7. Right Great Toe - [place] with Betadine daily, allow to dry. May leave open to air. Re-consult wound care Nurse for wound deterioration or wound changes.
--- NOTE | 2024-07-11 15:42 | W.MHC.ACPN ---
Advanced Care Planning Note Advanced Care Planning Note Discussed with: family member(s) Time spent (in minutes): 60 Narrative: I spoke to Mr. Marrero son and healthcare proxy, and sister during two separate phone calls; I offered updates and clarifications; we discussed Mr. Marrero clinical status, specifically Mr. Marrero altered mental status; both Mr. Marrero son and sister describe a decline in Mr. Marrero health, including mental status, in the past years especially since after Mr. Marrero mother , who he lived with; they both described that Mr. Powers has been in-and-out of hospitals frequently in the past months, and that he becomes more deconditioned each time; overall, they both are concerned Mr. Powers is becoming sicker and question the quality of his life going forward; of note, today Mr. Powers responds to his name, though is not oriented to time, place, nor situation, and is unable to participate in higher-level conversation; both Mr. Marrero son and sister believe Mr. Marrero code status should be changed to DNR, DNI, as it was in the past; we specifically discussed Mr. Marrero risk of aspiration given his persistent altered mental status, and whether Mr. Marrero philosophy of care would include a feeding tube, after which Mr. Marrero son stated Mr. Powers would never want a feeding tube; I encouraged Mr. Janes banerjee to come to the hospital to continue conversations regarding Mr. Marrero philosophy of care, which he plans to tomorrow AM Problems Discussed (1) Acute on chronic hypoxic respiratory failure: (2) Heart failure with reduced ejection fraction: (3) COPD (chronic obstructive pulmonary disease):
[2024-07-11] MEDS: levoFLOXacin/D5W 500 MG/100 ML PIGGYBACK 100 MG IV (16:42)
[2024-07-11 17:37] LABS: Glucose, Whole Blood 190 mg/dL (60-115)
[2024-07-11] MEDS: levoFLOXacin/D5W 250 MG/50 ML PIGGYBACK 50 MG IV (17:40)
[2024-07-11] MEDS: OLANZapine 10 MG VIAL IM (21:10)
[2024-07-11 23:29] LABS: Glucose, Whole Blood 143 mg/dL (60-115)
[2024-07-12] VITALS (23 sets, daily range): BP systolic 109–151; BP diastolic 69–95; PULSE 101–122; RESP 10–20; TEMP 36.3–37.1; O2SAT 91–98; BMI 32.9
[2024-07-12] MEDS: Heparin Sodium,Porcine 5,000 UNIT/ML VIAL 5000 UNIT SUBCUT ×2 (01:18→08:38)
[2024-07-12 05:17] LABS: VBG Base Excess 8.5 mmol/L; VBG HCO3 32 mmol/L (22-26); VBG pCO2 42 mmHg; VBG pH 7.49 (7.32-7.43); VBG pO2 52 mmHg
[2024-07-12 05:32] LABS: Venous Blood Gas Refer to POC result
[2024-07-12 05:33] LABS: Basophils Percent Auto 0.1 % (0-2); Eosinophils Percent Auto 0.1 % (0-4); Hematocrit 40.6 % (42.0-52.0); Hemoglobin 12.3 g/dl (14.0-18.0); Imm Gran Abs Auto 0.19 X10*3/uL (0.00-0.03); Imm Gran Pct Auto 1.3 % (0.0-0.4); Lymphocytes Absolute Auto 1.2 X10*3/uL (1.2-4.9); Lymphocytes Percent Auto 8.4 % (20-40); MANUAL DIFF FLAG NO; Mean Corpuscular HGB Conc 30.3 g/dl (31.0-36.0); Mean Corpuscular Hemoglobin 29.5 pg (27.0-33.0); Mean Corpuscular Volume 97.4 fL (80.0-98.0); Mean Platelet Volume 10.5 fL (9.4-12.4); Monocytes Absolute Auto 1.2 X10*3/uL (0.1-1.2); Monocytes Percent Auto 8.2 % (2-11); Neutrophils Absolute Auto 11.6 x10*3/uL (2.0-8.3); Neutrophils Percent Auto 81.9 % (45-73); Platelet Count 206 X10*3/uL (160-400); Red Blood Count 4.17 X10*6/uL (4.60-5.80); Red Cell Distribution Width 15.7 % (11.0-16.0); White Blood Count 14.2 X10*3/uL (4.8-10.8)
[2024-07-12 05:48] LABS: Anion Gap 19 (12-20); Blood Urea Nitrogen 53 mg/dL (9-16); Carbon Dioxide 29 mmol/L (22-29); Chloride 105 mmol/L (96-108); Creatinine Clr Calc Pharmacy 37.2; Estimated Glomerular Filt Rate 29; Glucose Random 172 mg/dL (60-115); Magnesium 2.4 mg/dL (1.6-2.6); Phosphorus 4.2 mg/dL (2.7-4.5); Potassium 3.8 mmol/L (3.3-5.1); Sodium 149 mmol/L (135-145)
[2024-07-12 06:10] LABS: Glucose, Whole Blood 162 mg/dL (60-115)
--- NOTE | 2024-07-12 07:32 | PM.CCPN ---
Subjective Subjective Date of Service: 07/12/24 Interval History: no significant overnight events; persistent encephalopathy Critical Care Time (minutes): 0 Physical Exam Vital Signs: Vital Signs: Last Vital Signs Temp 97.9 F 07/12/24 04:00 Pulse 101 H 07/12/24 07:00 Resp 18 07/12/24 07:00 BP 111/69 07/12/24 07:00 Pulse Ox 96 07/12/24 07:00 O2 Del Method Nasal Cannula 07/12/24 07:00 O2 Flow Rate 5 07/12/24 07:00 FiO2 40 07/08/24 10:00 Oxygen Flow Rate 4 07/06/24 03:58 BMI result Body Mass Index 32.9 Const: General: comfortable, no acute distress and well developed Orientation/consciousness: No patient oriented x3 HEENT: Head: Yes normal to inspection, Yes normocephalic and Yes atraumatic Eyes: General: appearance normal, both eyes and all related structures Neck: Neck: Yes normal visual inspection, Yes full ROM, Yes no meningeal signs, Yes trachea midline and Yes supple Chest: Chest palpation & inspection: normal inspection of the chest Resp: Other: diminished breath sounds throughout; no overt rales, rhonchi, wheezing Effort & Inspection: normal respiratory effort Cardio: Rate: tachycardic Rhythm: abnormal rhythm GI: Inspection: Yes normal to inspection, No Abdominal wall edema and No distended Palpation (GI): Soft to palpation, not firm, nontender, no guarding and not rigid Skin: General skin exam: no rashes or lesions noted Neuro: General: No patient oriented x3, tone normal, moves all extremities and no meningeal signs Extrem: Other: appreciable 1+ pitting edema to bilateral shins General: Yes normal to inspection, Yes full ROM and Yes capillary refill normal Psych: Other: unable to assess Objective Data Labs 07/12/24 05:08 07/12/24 05:08 Labs: Laboratory Results - last 24 hr 07/11/24 07/11/24 07/11/24 10:52 17:34 23:25 WBC RBC Hgb Hct MCV MCH MCHC RDW Plt Count MPV Immature Gran % (Auto) Neut % (Auto) Lymph % (Auto) [place] % (Auto) Eos % (Auto) Baso % (Auto) Lymph # (Auto) [place] # (Auto) Eos # (Auto) Baso # (Auto) Abs Immat Gran (auto) Absolute Neuts (auto) Absolute Nucleated RBC Nucleated RBC % (auto) VBG pH VBG pCO2 VBG pO2 VBG HCO3 VBG O2 Saturation VBG Base Excess Sodium Potassium Chloride Carbon Dioxide Anion Gap BUN Creatinine Estim Creat Clear Calc Estimated GFR POC Glucose 172 H 190 H 143 H Random Glucose Calcium Phosphorus Magnesium 07/12/24 07/12/24 07/12/24 05:05 05:08 06:03 WBC 14.2 H RBC 4.17 L Hgb 12.3 L Hct 40.6 L MCV 97.4 MCH 29.5 MCHC 30.3 L RDW 15.7 Plt Count 206 MPV 10.5 Immature Gran % (Auto) 1.3 H Neut % (Auto) 81.9 H Lymph % (Auto) 8.4 L [place] % (Auto) 8.2 Eos % (Auto) 0.1 Baso % (Auto) 0.1 Lymph # (Auto) 1.2 [place] # (Auto) 1.2 Eos # (Auto) 0.0 Baso # (Auto) 0.0 Abs Immat Gran (auto) 0.19 H Absolute Neuts (auto) 11.6 H Absolute Nucleated RBC 0.000 Nucleated RBC % (auto) 0.0 VBG pH 7.49 H VBG pCO2 42 VBG pO2 52 VBG HCO3 32 H VBG O2 Saturation 84.0 VBG Base Excess 8.5 Sodium 149 H Potassium 3.8 Chloride 105 Carbon Dioxide 29 Anion Gap 19 BUN 53 H Creatinine 2.23 H Estim Creat Clear Calc 37.2 Estimated GFR 29 POC Glucose 162 H Random Glucose 172 H Calcium 10.0 Phosphorus 4.2 Magnesium 2.4 Microbiology Microbiology Results: Microbiology 07/06/24 08:59 Blood - Venous Blood Culture - Final No growth after 5 days. 07/06/24 08:54 Blood - Venous Blood Culture - Final No growth after 5 days. Progress Note: A&P Assessment and plan (1) Acute on chronic hypoxic respiratory failure: Status: Acute (2) Heart failure with reduced ejection fraction: Status: Acute (3) Congestive heart failure: Status: Acute (4) COPD (chronic obstructive pulmonary disease): Status: Acute Plan Patient is a 69 Y M w/ diabetes mellitus, heart failure, c/b atrial fibrillation on apixaban, CKD, and COPD on 4L NC baseline, presenting initially on 07/06 w/ dyspnea, found to be hypoxic respiratory failure, placed on HFNC, thought to be d/t CHF exacerbation N: encephalopathy, unclear etiology; CT H 07/11 not suggestive of structural intracranial process CV: heart failure c/f CHF exacerbation, improving, diuresis as tolerated; atrial fibrillation on apixaban, metoprolol when tolerating PO R: acute on chronic hypoxic respiratory failure, likely d/t CHF exacerbation, on nasal cannula vs oxymask, wean as tolerated GI: NPO d/t encephalopathy; speech/swallow evaluation : JESSIKA on CKD; CHF exacerbation, improving, diuresis as tolerated; to monitor renal indices/electrolytes closely H: no acute issues; atrial fibrillation on apixaban when tolerating PO; chemical DVT prophylaxis w/ heparin SQ ID: no acute issues; of note CT H 07/11 initially read as c/f possible L fungal sinusitis vs malignancy, though case re-discussed w/ Dr. Andujar, who is reassured findings likely chronic bacterial sinusitis; empiric levofloxacin for bacterial sinusitis E: diabetes mellitus; to monitor hypo-/hyper-glycemia P: no acute issues Quality Stroke Does the patient have a stroke diagnosis?: No VTE Prior VTE?: No VTE Risk Level:: Medical - moderate - high VTE Device Contraindication: N/A - Device Ordered VTE Drug Contraindication: N/A - Med Ordered
[2024-07-12] MEDS: Albuterol/Iprat 2.5/0.5MG 3 ML AMPUL.NEB INHALE (08:07)
[2024-07-12] MEDS: Bumetanide 1 MG/4 ML VIAL IVPUSH (08:38)
[2024-07-12] MEDS: 0.9 % Sodium Chloride Flush 3 ML SYRINGE IVFLUSH ×3 (08:39→19:14)
[2024-07-12] MEDS: LORazepam 2 MG/ML VIAL 0.5 MG IVPUSH ×3 (08:39→19:53)
--- NOTE | 2024-07-12 09:44 | P.ACPN_ITS ---
Advanced Care Planning Note Advanced Care Planning Note Discussed with: family member(s) Time spent (in minutes): 30 Narrative: I met Mr. Powers' son and healthcare proxy, Molina, at the bedside; Mr. Powers just finished a speech/swallow evaluation, which unfortunately he failed; we discussed next possible steps, including total parenteral nutrition, after which Molina stated Mr. Powers would not want; Molina stated he has been discussing with his aunt and , who is a nurse, and they were considering comfort- focused care given Mr. Powers ongoing and progressive decline; we discussed comfort-focused care further, after which Molina stated he believed changing Mr. Marrero philosophy of care to comfort-focused care is appropriate at this time; Molina stated he has to work today and will try to transport his mother, who unfortunately has health issues herself, to the hospital later this evening, after which he would like to officially start the comfort-focused process Problems Discussed (1) Acute on chronic hypoxic respiratory failure: (2) Heart failure with reduced ejection fraction: (3) Congestive heart failure: (4) COPD (chronic obstructive pulmonary disease):
[2024-07-12] MEDS: Scopolamine 1.5 MG PATCH.TD.3 TRANSDERMA (10:24)
--- NOTE | 2024-07-12 11:30 | MHC.SLORD ---
Speech Language Pathology Order Status: GEAR TESTER initiated bedside swallow evaluation. Pt able to follow simple commands to open jaw, protrude tongue, elicit volitional swallow and produce voice. Pt expressed appreciation when oral swabs administered to clear dried secretions from surface of lips and tongue. Pt took ice chips by spoon presentation, with slow coordination. Pt provided with multimodal cues to trial 1/2 tsp of pudding, upon taking bolus from spoon, oral phase of swallow ceased. GEAR TESTER cued pt to swallow, pt unable to initiate anterior to posterior bolus transit. GEAR TESTER swept material out of mouth with toothette. MD and son at bedside, GEAR TESTER recc ice chips and oral swabbing for comfort. GEAR TESTER to repeat bedside swallow as requested. MD speaking with family in determining POC.
[2024-07-12] MEDS: LORazepam 2 MG/ML VIAL 1 MG IVPUSH (13:23)
--- NOTE | 2024-07-12 15:08 | MHC.CM.PN ---
Pt's son Molina has met w/MD and discussed w/family, pt's transition to comfort focused care: Molina states pt had verbally expressed a wish for non aggressive management in the recent past. Clinical updates remitted to [facility] where pt has been a resident. Pt may be able to return in 1-2 days for VETERINARY ATTENDANT care. CM to follow
[2024-07-12] MEDS: Morphine Sulfate 2 MG/ML CARTRIDGE IVPUSH (16:01)
--- NOTE | 2024-07-12 16:02 | P.CDIM_ITS ---
PROVIDER RESPONSE TEXT: To clarify, the appropriate diagnosis supported by the clinical indicators: Toxic metabolic QUERY TEXT: PHYSICIAN'S DOCUMENTATION REQUEST Date of Query: 07/12/2024 01:30 PM EST Patient Name: Lamin Powers Admit Date: 07/06/2024 Dear Glenna Anaya MD, A review of the medical record indicates additional documentation may be needed. Please review below and update the documentation accordingly. Clinical Indicators: persistent encephalopathy of unclear etiology, ammonia slightly elevated, started on Lactulose moans, tracks to verbal stimulus, though unable to answer questions appropriately CT H 07/11 not suggestive of structural intracranial process Based on the above, please further specify the known or suspected type of the documented encephalopat hy: Metabolic Toxic Toxic metabolic Anoxic Other (explain) Clinically unable to determine (explain) Thank you, Shelby Batres RN Use of terms such as suspected, likely, concern for, or probable (associated with a specific diagnosi s that is being evaluated, monitored, or treated as if it exists) are acceptable and can be coded in the inpatient se tting, when documented at the time of discharge. Please use your independent medical judgment in providing your response. THIS QUERY IS PART OF THE PERMANENT MEDICAL RECORD
[2024-07-12] MEDS: Haloperidol Lactate 5 MG/ML VIAL 1 MG IVPUSH (19:11)
--- NOTE | 2024-07-12 19:31 | PM.EVENT ---
Documented by User: Fe Moffett NP 07/12/24 19:33 Event Note Date of Service: 07/12/24 Event Note: Patients Oksana and son Molina at bedside, from previous conversation with attending Dr Anaya, they will like to initiate Com[place] measures only at this time. Code status changed in chart. Chaplai visited earlier Time Spent With Patient Time: Total time managing care of this patient today ____ minutes. Documented by User: Glenna Anaya MD 07/13/24 08:13 Event Note Date of Service: 07/13/24
--- NOTE | 2024-07-12 21:31 | PC.NURSE ---
CARE ASSUMED 7PM..PATIENT AWAKE..SPEECH SLOW..ABLE TO STATE BIRTHDAY BUT DISORIENTED TO PLACE/TIME/RECENT EVENTS..RESTLESS/INTERMITTANTLY AGITATED..PULLING ON LINES/O2/WIRES...FAMILY AT BEDSIDE..PRN HALDOL GIVEN PER FAMILY REQUEST FOR AGITATION/RESTLESSNESS...PATIENT SON AMY AND PATIENT'S STIVEN REQUEST TRANSITION TO CLAM [facility]OWER STATUS..ICU UNIFORM FORCE CAPTAIN AT BEDSIDE ...CODE STATUS CHANGED TO [facility] STATUS...PRN ATIVAN GIVEN FOR CONTINUED RESTLESS/AGITATION WITH GOOD EFFECT...BP CUFF REMOVED FOR PATIENT COMFORT WELL SAO2 PROBE AFTER PULLED OFF BY PATIENT PER PROVIDER
[2024-07-12] MEDS: HYDROmorphone HCl 0.5 MG/0.5 ML SYRINGE 1 MG IVPUSH (22:27)
[2024-07-13] MEDS: HYDROmorphone HCl 0.5 MG/0.5 ML SYRINGE 1 MG IVPUSH (05:03)
--- NOTE | 2024-07-13 07:45 | P.PNCC_ITS ---
Subjective Subjective Date of Service: 07/13/24 Interval History: transitioned to comfort-focused care 07/12 PM; appears in no acute distress Critical Care Time (minutes): 0 Physical Exam 2 Vital Signs: Vital Signs: Last Vital Signs Temp 97.4 F 07/12/24 16:00 Pulse 106 H 07/12/24 23:10 Resp 12 07/12/24 23:10 BP 151/95 H 07/12/24 19:00 Pulse Ox 95 07/12/24 19:00 O2 Del Method Nasal Cannula 07/12/24 23:10 O2 Flow Rate 4 07/12/24 23:10 FiO2 40 07/08/24 10:00 Oxygen Flow Rate 4 07/06/24 03:58 BMI result Body Mass Index 32.9 Const: Other: lethargic General: comfortable and no acute distress Orientation/consciousness: No patient oriented x3 HEENT: Head: Yes normal to inspection, Yes normocephalic and Yes atraumatic Eyes: General: appearance normal, both eyes and all related structures Neck: Neck: Yes normal visual inspection and Yes trachea midline Chest: Chest palpation & inspection: normal inspection of the chest Resp: Effort & Inspection: no grunting, not labored, no nasal flaring, no pursed lip breathing, no respiratory distress, no retractions, not tachypneic and no use of accessory muscles Cardio: Rate: tachycardic Rhythm: regular rhythm GI: Inspection: Yes normal to inspection, No Abdominal wall edema and No distended Palpation (GI): Soft to palpation, not firm, nontender, no guarding and not rigid Skin: General skin exam: no rashes or lesions noted Neuro: General: No patient oriented x3 Extrem: General: Yes normal to inspection Psych: Other: unable to assess Objective Data Labs 07/12/24 05:08 07/12/24 05:08 Microbiology Microbiology Results: Microbiology 07/06/24 08:59 Blood - Venous Blood Culture - Final No growth after 5 days. 07/06/24 08:54 Blood - Venous Blood Culture - Final No growth after 5 days. Progress Note: A&P Assessment and plan (1) Heart failure with reduced ejection fraction: Status: Acute (2) COPD (chronic obstructive pulmonary disease): Status: Acute (3) Encephalopathy: Status: Acute Plan Patient is a 69 Y M w/ diabetes mellitus, heart failure, c/b atrial fibrillation on apixaban, CKD, and COPD on 4L NC baseline, presenting initially on 07/06 w/ dyspnea, found to be hypoxic respiratory failure, placed on HFNC, thought to be d/t CHF exacerbation; ICU course c/b persistent encephalopathy, aspiration; on 07/12, patient's philosophy of care transitioned to comfort-focused care - appears comfortable on current medications; plan to continue comfort-focused process, including close monitoring of any signs/symptoms of distress Quality Stroke Does the patient have a stroke diagnosis?: No VTE Prior VTE?: No VTE Risk Level:: Medical - moderate - high VTE Device Contraindication: Treatment Not Indicated VTE Drug Contraindication: Treatment Not Indicated
[2024-07-13 07:55] VITALS: PULSE 117; RESP 8
[2024-07-13] MEDS: 0.9 % Sodium Chloride Flush 3 ML SYRINGE IVFLUSH ×3 (09:55→20:34)
[2024-07-13] MEDS: LORazepam 2 MG/ML VIAL 1 MG IVPUSH ×5 (11:18→23:51)
[2024-07-13 11:22] VITALS: RESP 10
[2024-07-13] MEDS: LORazepam 2 MG/ML VIAL 0.5 MG IVPUSH ×2 (13:03→13:53)
--- NOTE | 2024-07-13 13:20 | PC.NURSE ---
1115- Patient transferred to [facility] from ICU via bed. Patient resting comfortably. RR 10. O2 2L via NC for comfort. Call cortez in reach.
[2024-07-13 16:00] VITALS: RESP 14
[2024-07-13 18:36] VITALS: RESP 18
[2024-07-13] MEDS: Morphine Sulfate 2 MG/ML CARTRIDGE IVPUSH (18:36)
[2024-07-13 20:02] VITALS: RESP 20
[2024-07-13 23:09] VITALS: RESP 22
[2024-07-14 00:11] VITALS: RESP 16
[2024-07-14] MEDS: LORazepam 2 MG/ML VIAL 1 MG IVPUSH ×2 (05:08→08:20)
[2024-07-14] MEDS: Morphine Sulfate 2 MG/ML CARTRIDGE IVPUSH ×2 (05:08→11:27)
[2024-07-14 07:03] VITALS: RESP 12
[2024-07-14] MEDS: 0.9 % Sodium Chloride Flush 3 ML SYRINGE IVFLUSH ×2 (08:21→14:23)
--- NOTE | 2024-07-14 10:07 | P.PNIM_ITS ---
Subjective Subjective Date of Service: 07/14/24 Interval History: appears comfortable Review of Systems Review of Systems: Yes Unobtainable due to mental status Physical Exam 2 Vital Signs: Vital Signs: Last Vital Signs Temp 97.4 F 07/12/24 16:00 Pulse 117 H 07/13/24 07:55 Resp 12 07/14/24 07:03 BP 151/95 H 07/12/24 19:00 Pulse Ox 95 07/12/24 19:00 O2 Del Method Nasal Cannula 07/14/24 09:42 O2 Flow Rate 2 07/14/24 09:42 FiO2 86 07/14/24 09:42 Oxygen Flow Rate 4 07/06/24 03:58 BMI result Body Mass Index 32.9 Gen: ill-appearing Lungs: breathing comfortably Neuro: somnolent Objective Data Active Medications Artificial Tears (Artificial Tears 15 Ml Drops) 2 drop EYE-BOTH Q4H PRN PRN Reason: Dry Eyes Glycopyrrolate (Glycopyrrolate 0.2 Mg/Ml Vial) 0.2 mg IVPUSH Q6H PRN PRN Reason: Respiratory secretions Haloperidol Lactate (Haloperidol Lactate 5 Mg/Ml Vial) 1 mg IVPUSH Q1H PRN PRN Reason: Delirium Last Admin: 07/12/24 19:11 Dose: 1 mg Documented By: MINE Hydromorphone HCl (Hydromorphone Hcl 0.5 Mg/0.5 Ml Syringe) 1 mg IVPUSH Q1H PRN PRN Reason: Pain, Severe (Pain Scale 7-10) Last Admin: 07/13/24 05:03 Dose: 1 mg Documented By: MINE Lorazepam (Lorazepam 2 Mg/Ml Vial) 1 mg IVPUSH Q1H PRN PRN Reason: Myoclonic twitching/anxiety Morphine Sulfate (Morphine Sulfate 2 Mg/Ml Cartridge) 2 mg IVPUSH Q1H PRN PRN Reason: Dyspnea Last Admin: 07/14/24 05:08 Dose: 2 mg Documented By: MITRA Ondansetron HCl (Ondansetron Hcl 4 Mg/2 Ml Vial) 4 mg IVPUSH Q4H PRN PRN Reason: Nausea and Vomiting Scopolamine (Scopolamine 1.5 Mg Patch.Td.3) 1.5 mg TRANSDERMA Q72H MARIANNA Last Admin: 07/12/24 10:24 Dose: 1.5 mg Documented By: HUSSEIN Sodium Chloride (0.9 % Sodium Chloride Flush 3 Ml Syringe) 3 ml IVFLUSH QSHIFT [facility] Last Admin: 07/14/24 08:21 Dose: 3 ml Documented By: ISABEL Labs 07/12/24 05:08 07/12/24 05:08 Assessment and Plan (1) Encephalopathy: Status: Acute Plan d9 for 69yo with DM2, CHF, AF on apixaban, CKD, COPD on 4L NC baseline presenting with dyspnea, found to be hypoxic from CHF exacerbation, placed on HFNC and transferred to the ICU 07/07; due to persistent encephalopathy and aspiration, pt was transitioned to comfort care 07/12/24 and stepped down to M/S 07/13/24 - prn lorazepam + haloperidol - prn morphine/hydromorphone - prn glycopyrrolate - scopolamine patch Total time managing care of this patient today: 35 minutes. Quality Stroke Does the patient have a stroke diagnosis?: No VTE Prior VTE?: No VTE Risk Level:: Medical - moderate - high VTE Device Contraindication: Treatment Not Indicated VTE Drug Contraindication: Treatment Not Indicated
[2024-07-14] MEDS: Glycopyrrolate 0.2 MG/ML VIAL IVPUSH (11:27)
--- NOTE | 2024-07-14 12:28 | MHC.CM.PN ---
PER ROUNDS PT IS NOW [employer] NO PLANS TO DC
[2024-07-14 15:06] VITALS: RESP 14
--- NOTE | 2024-07-14 16:22 | PC.NURSE ---
This nurse assumed care of patient at 16:00 n
--- NOTE | 2024-07-14 16:22 | PC.NURSE ---
This nurse assumed care of patient at 16:00 on 07/14/24. Patient is in active stages of end of life. Respirations are shallow with 12 second periods of apnea. Audible secretions noted and lung sounds are rhonchorus. Patient is garcia in color with slight mottling to bilateral feet. Family is aware of pending end of life
--- NOTE | 2024-07-14 17:30 | PM.DDS ---
Discharge Sum: Prov Provider Primary care physician: Demetrio Saxena MD Admitting clinician: Catracho Pineda Attending physician on admission: Sundar Canales Pronouncing clinician: Marguerite Paredes Discharge Sum: Diag PCOD Cause of : Respiratory failure Contributing Factors (1) Encephalopathy: (2) Dementia: (3) COPD (chronic obstructive pulmonary disease): (4) Heart failure with reduced ejection fraction: Discharge Sum: Summary Date and Time Date of admission: 07/06/24 12:05 Date of : 07/14/24 Time of : 17:22 Summary Details: From the history and physical by the admitting hospitalist, MELANIA Ma, 07/06/24: Pt is a 69-year-old male with a PMH significant for?paroxysmal AFib on Eliquis, COPD on 4L home O2, HFrEF, CKD stage 3, insulin-dependent type 2 diabetes, alcohol dependence, and dementia [facility]% on RA without his nasal cannula on. Pt previously tested positive for COVID at the facility on 06/17/2024, and recently diagnosed with pneumonia and started on azithromycin doxycycline 2 days ago on 07/04/2024. At the facility pt has been experiencing increasing shortness of breath with cough. Pt is alert and oriented to self only and a rather poor historian, but complains only of difficulty breathing, pt denies cough, though as noted to be coughing during interview and exam. In the emergency room pt was noted to be desatting into the 70s and placed on high-flow. In the ED pt was tachypneic up to 26, hypotensive as low as 80/36, and satting at 78% on home 4L NC. Labs were grossly unremarkable and around baseline for pt. No leukocytosis. Stable anemia of 10.0/33.6. No significant electrolyte abnormalities. Creatinine 1.47, at baseline. Lactic acid WNL. Hepatic function WNL. Continues to test positive for COVID. CXR showed mild bibasilar subsegmental atelectasis or infiltrate and small layering right-sided effusion. EKG with artifact, demonstrated normal sinus rhythm with RBBB. Pt was treated with Solu-Medrol, Mag sulfate, DuoNebs, doxycycline, and ceftriaxone. Pt will be admitted to the hospital for treatment and further evaluation of acute hypoxic respiratory failure in the setting of COPD exacerbation with superimposed pneumonia. 69yo with DM2, CHF, AF on apixaban, CKD, COPD on 4L NC baseline presenting with dyspnea, found to be hypoxic from CHF exacerbation, placed on HFNC and transferred to the ICU 07/07; due to persistent encephalopathy and aspiration, pt was transitioned to comfort care 07/12/24 and stepped down to the medical-surgical unit 07/13/24 and given comfort care medications. He without apparent distress on 07/14/24 at 17:22. Additional Data Confirmation of as documented by pronouncing clinician: no pulse, no respirations, no heart sounds and pupils fixed and dilated Family: contacted Attending physician: Marguerite Paredes MD
== END 2024-07-14 17:22 | disposition expired | DRG 291 ==
LOC: HO.ED 08:11 → HO.EDOVER 12:20 → HO.S3 17:17 → HO.EDOVER 18:35 → HO.IMC 20:11 → HO.ICU 07-07 10:46 → HO.S3 07-13 09:58
PROVIDERS: Internal Medicine; Internal Medicine Critical Care Medicine; Internal Medicine Pulmonary Disease; Physician Assistant Medical; Registered Nurse Community Health; Admitting Provider Student in an Organized Health Care Education/Training Program; Emergency Provider Emergency Medicine; PCP Family Medicine; Visit Provider Family Medicine
DX: I13.0 Hypertensive heart and chronic kidney disease with heart failure and stage 1 through stage 4 chronic kidney disease, or unspecified chronic kidney disease (principal); G92.8 Other toxic encephalopathy; I50.23 Acute on chronic systolic (congestive) heart failure; J18.9 Pneumonia, unspecified organism; J96.21 Acute and chronic respiratory failure with hypoxia; J98.11 Atelectasis; J44.0 Chronic obstructive pulmonary disease with (acute) lower respiratory infection; J44.1 Chronic obstructive pulmonary disease with (acute) exacerbation; N17.9 Acute kidney failure, unspecified; E11.22 Type 2 diabetes mellitus with diabetic chronic kidney disease; J32.0 Chronic maxillary sinusitis; Z51.5 Encounter for palliative care; B96.89 Other specified bacterial agents as the cause of diseases classified elsewhere; N18.30 Chronic kidney disease, stage 3 unspecified; F10.20 Alcohol dependence, uncomplicated; D63.1 Anemia in chronic kidney disease; I48.0 Paroxysmal atrial fibrillation; F03.90 Unspecified dementia, unspecified severity, without behavioral disturbance, psychotic disturbance, mood disturbance, and anxiety; Z20.822 Contact with and (suspected) exposure to COVID-19; Z99.81 Dependence on supplemental oxygen; Z79.01 Long term (current) use of anticoagulants; Z79.51 Long term (current) use of inhaled steroids; Z79.82 Long term (current) use of aspirin; Z79.899 Other long term (current) drug therapy
CPT/HCPCS: 0241U; 36415; 70450; 71045; 71046; 71250; 71275; 73660; 80048; 80053; 82040; 82140; 82248; 82803; 82947; 83605; 83735; 83880; 84100; 84443; 84484; 85025; 85610; 85730; 86140; 87040; 87635; 93005; 93306; 94640; 94799; 99285; J0696; J1120; J1171; J1596; J1630; J1644; J1939; J1956; J2060; J2270; J2359; J2919; J3475; P9047; Q9967

== ENCOUNTER → 2024-07-06 03:56 | Outpatient (BNV) | payer MEDICARE, MEDICAID, SELFPAY | PROVIDERS: Emergency Provider Emergency Medicine; Visit Provider Internal Medicine Cardiovascular Disease | DX: I45.10 Unspecified right bundle-branch block (principal) | CPT/HCPCS: 93010 ==

== ENCOUNTER → 2024-07-06 04:15 | Outpatient (BNV) | payer MEDICARE, MEDICAID, SELFPAY | PROVIDERS: Visit Provider General Practice | DX: J98.11 Atelectasis (principal) | CPT/HCPCS: 71045 ==

== ENCOUNTER 2024-07-06 12:05 | Outpatient (BNV) | payer MEDICARE, MEDICAID, SELFPAY | END 2024-07-11 12:46 | PROVIDERS: Admitting Provider Student in an Organized Health Care Education/Training Program; Emergency Provider Emergency Medicine; PCP Family Medicine; Visit Provider Radiology Diagnostic Radiology | DX: G31.9 Degenerative disease of nervous system, unspecified (principal); I67.89 Other cerebrovascular disease | CPT/HCPCS: 70450 ==

== ENCOUNTER 2024-07-06 12:05 | Outpatient (BNV) | payer MEDICARE, MEDICAID, SELFPAY | END 2024-07-07 17:00 | PROVIDERS: Admitting Provider Student in an Organized Health Care Education/Training Program; Emergency Provider Emergency Medicine; PCP Family Medicine; Visit Provider Internal Medicine Cardiovascular Disease | DX: R06.00 Dyspnea, unspecified (principal); I51.89 Other ill-defined heart diseases | CPT/HCPCS: 93306 ==

== ENCOUNTER 2024-07-06 12:05 | Outpatient (BNV) | payer MEDICARE, MEDICAID, SELFPAY | END 2024-07-07 10:30 | PROVIDERS: Admitting Provider Student in an Organized Health Care Education/Training Program; Emergency Provider Emergency Medicine; Visit Provider Radiology Diagnostic Radiology | DX: J90 Pleural effusion, not elsewhere classified (principal); R91.8 Other nonspecific abnormal finding of lung field; J44.9 Chronic obstructive pulmonary disease, unspecified | CPT/HCPCS: 71045 ==

== ENCOUNTER 2024-07-06 12:05 | Outpatient (BNV) | payer MEDICARE, MEDICAID, SELFPAY | END 2024-07-08 11:10 | PROVIDERS: Admitting Provider Student in an Organized Health Care Education/Training Program; Emergency Provider Emergency Medicine; PCP Family Medicine; Visit Provider Radiology Diagnostic Radiology | DX: R06.00 Dyspnea, unspecified (principal); R09.02 Hypoxemia | CPT/HCPCS: 71275 ==

== ENCOUNTER → 2024-07-06 12:05 | Outpatient (BNV) | payer MEDICARE, MEDICAID, SELFPAY | PROVIDERS: Admitting Provider Student in an Organized Health Care Education/Training Program; Emergency Provider Emergency Medicine; Visit Provider Internal Medicine | DX: J96.21 Acute and chronic respiratory failure with hypoxia (principal); J18.9 Pneumonia, unspecified organism | CPT/HCPCS: 99223; 99232; 99499 ==

== ENCOUNTER → 2024-07-06 12:05 | Outpatient (BNV) | payer MEDICARE, MEDICAID, SELFPAY | PROVIDERS: Admitting Provider Student in an Organized Health Care Education/Training Program; Emergency Provider Emergency Medicine; PCP Family Medicine; Visit Provider Internal Medicine Critical Care Medicine | DX: J96.21 Acute and chronic respiratory failure with hypoxia (principal); I50.20 Unspecified systolic (congestive) heart failure; J44.9 Chronic obstructive pulmonary disease, unspecified | CPT/HCPCS: 99291 ==

== ENCOUNTER → 2024-07-06 12:05 | Outpatient (BNV) | payer MEDICARE, MEDICAID, SELFPAY | PROVIDERS: Admitting Provider Student in an Organized Health Care Education/Training Program; Emergency Provider Emergency Medicine; Visit Provider Internal Medicine Pulmonary Disease | DX: I50.20 Unspecified systolic (congestive) heart failure (principal); I48.0 Paroxysmal atrial fibrillation; J44.9 Chronic obstructive pulmonary disease, unspecified; J96.21 Acute and chronic respiratory failure with hypoxia | CPT/HCPCS: 99232; 99233 ==